=== PATIENT | male | born 1975 | race Caucasian/White ===

== ENCOUNTER → 2016-06-07 | Outpatient (CLI) | payer OTHER ==
[~2016-06-07] MED LIST: /ESOM40CA PO; /PANT40TA PO; ALBUTEROL INH; AMIT10TA2 PO; CYCL10TA PO; FLEXERIL PO; IBUP600T; IBUP600T PO; LIDO1OIN2 TOP; LIDO2.5C17 EXT; LIPI10TA PO; LISI2.5T PO; LOPR50TA; LOPR50TA PO; METO-209 PO; MOBI15TA PO; NAPR500T PO; NEUR800T PO; No Historical Meds; PERC5TAB8; PERCOCET PO; ROBA750T4 PO; SUMA5SPR; TOPA25TA10 PO; VICO5TAB PO
--- NOTE | 2016-06-13 23:47 | ECWPNPC ---
PATIENT NAME: EJ CORDERO : 1975 GENDER: MALE VISIT DATE: 06/07/2016 DISCHARGE DATE: 06/07/16 1256 VISIT LOCKED DATE TIME: PHYSICIAN: SHAKIRA COLES RESOURCE: SHAKIRA COLES REASON FOR APPOINTMENT 1. BACK/NECK HISTORY OF PRESENT ILLNESS HISTORY OF PRESENT ILLNESS: PAIN THE PATIENT DESCRIBES THE PAIN... FALL RISK SCREENING: SCREENING :NO FALLS IN THE PAST YEAR TODAY'S VISIT: NOTES: LAST VISIT 02/07/16. REQUESTED MRI OF LUMBAR SPINE AND WAS DENIED. STATES CALLED REPEATEDLY BUT NEVER GOT A CALL BACK. IS VERY FRUSTRATED BECAUSE OF THE ISSUE WITH THE MRI. ALSO REFERRED TO [facility] FOR EMG/NCS - THIS IS BEING SCHEDULED. RATES PAIN TODAY 12/08. STATES HE IS NOT DOING WELL WITH WEAN OF OPIATES AND THAT HE CAN NOT FUNCTION DUE TO PAIN. DESCRIBES PAIN CONSTANT WITH INTERMITTANT SHARP AND STABBING PAIN IN LOW AND MID BACK, WITH RADIATION TO RIGHT HIP AND LEG.. CURRENT MEDICATIONS TAKING PROTONIX 40 MG 1 TAB ORAL DAILY TAKING SUMATRIPTAN SUCCINATE - TABLET 1 TABLET NEEDED ONE TIME ORALLY BID PRN TAKING LISINOPRIL 10 MG TABLET 1 TABLET ORALLY ONCE A DAY TAKING MOBIC 15 MG TABLET 1 TABLET ORALLY ONCE A DAY TAKING PERCOCET 5-325 MG TABLET 1 -2 TABLETS ORALLY EVERY 4 HRS PRN PAIN MDD=5 TAKING VENTOLIN HFA 108 (90 BASE) MCG/ACT AEROSOL SOLUTION 2 PUFFS NEEDED INHALATION EVERY 4 HRS TAKING TOPIRAMATE 50 MG TABLET 1 TABLET ORALLY TWICE A DAY NOT-TAKING GEMFIBROZIL 600 MG TABLET 1 TABLET ORALLY TWICE A DAY NOT-TAKING ELAVIL 50 MG TABLET ORAL AT BEDTIME NEEDED NOT-TAKING MORPHINE SULFATE 30 MG TABLET 1 TABLET ORALLY AT BEDTIME MDD=1 NOT-TAKING NUCYNTA ER 100 MG TABLET EXTENDED RELEASE 12 HOUR 1 TABLET ORALLY EVERY 12 HRS MDD=1 TAKE AT HS NOT-TAKING OXYMORPHONE HCL ER 10 MG TABLET EXTENDED RELEASE 12 HOUR DIRECTED ORALLY TAKE 1 PO Q BEDTIME MDD=1 NOT-TAKING LIDOCAINE 5 % OINTMENT 1 APPLICATION TO AFFECTED AREA NEEDED EXTERNALLY THREE TIMES A DAY NEEDED NOT-TAKING CYCLOBENZAPRINE HCL 10 MG TABLET 1 TABLET ORALLY TID PRN NOT-TAKING METOPROLOL SUCCINATE ER 100 MG TABLET EXTENDED RELEASE 24 HOUR 1 TABLET ORALLY ONCE A DAY NOT-TAKING SUMATRIPTAN 5 MG/ACT SOLUTION NASALLY NEEDED MEDICATION LIST REVIEWED AND RECONCILED WITH THE PATIENT PAST MEDICAL HISTORY ASTHMA TMJ ALLERGIES N.K.D.A. SOCIAL HISTORY GENERAL: TOBACCO USE ARE YOU A:CURRENT SMOKER LEARNING BARRIERS / SPECIAL NEEDS ORIENTED TO PLAN OF CARE: PATIENT, PAIN MANAGEMENT PATIENT, ORIENTED TO PLAN OF CARE: PATIENT, PAIN MANAGEMENT PATIENT. NEW PATIENT PAIN DIARY TODAY'S VISITNOTES FROM 0-10, WHAT LEVEL IS YOUR PAIN TODAY?0 PAIN CLINIC PFS, CLERGY, PUBLIC HEALTH REFERRALS PFS REFERRAL NEEDED?NO CLERGY REFERRAL NEEDED?NO PUBLIC HEALTH REFERRAL NEEDED?NO WAS THE PROVIDER NOTIFIED OF ANY PERTINENT INFO?NO PFS REFERRAL NEEDED?NO CLERGY REFERRAL NEEDED?NO PUBLIC HEALTH REFERRAL NEEDED?NO WAS THE PROVIDER NOTIFIED OF ANY PERTINENT INFO?NO REVIEW OF SYSTEMS CONSTITUTIONAL: ANY CHANGE IN YOUR MEDICAL CONDITION? YES . CHILLS NO . FEVER NO . INFECTION: DO YOU HAVE NEW INFECTIONS? NO . DO YOU HAVE HISTORY OF MRSA? NO . MUSCULOSKELETAL: ANY NEW PATTERNS OF PAIN OR NUMBNESS? YES . GASTROENTEROLOGY: ANY NEW CHANGE IN BOWEL CONTROL? NO . GENITOURINARY: ANY NEW CHANGE IN BLADDER CONTROL? NO . IS THERE A CHANCE YOU COULD BE ? NO . HEMATOLOGY/LYMPH: DO YOU TAKE ANY BLOOD THINNERS? (FOR EXAMPLE- COUMADIN, PLAVIX, AGGRENOX, PLATEL, PRADAXA, OR XARELTO) NO . WHEN WAS YOUR LAST DOSE? DATE: TIME: . NEUROLOGY: HAVE YOU FALLEN IN THE PAST 6 MONTHS? YES . ANY NEW EXTREMITY NUMBNESS OR WEAKNESS? NO . CARDIOLOGY: DO YOU HAVE A PACEMAKER OR DEFIBRILLATOR? NO . HIGH BLOOD PRESSURE HAS RETURNED TO THE CARE OF DR MAYANK CHU FOR HYPERTENTION CARE . RESPIRATORY: HAVE YOU BEEN SICK IN THE PAST WEEK? YES,COLD . FEVER NO . FLU LIKE SYMPTOMS? NO . COUGH NO . INTEGUMENTARY: DO YOU HAVE ANY RASHES OR OPEN SORES? YES . ALLERGIC/IMMUNO: ARE YOU ALLERGIC TO SHELLFISH OR IV DYE? NO . ANY NEW ALLERGIES? NO . PSYCHIATRIC: DO YOU HAVE THOUGHTS OF HURTING YOURSELF OR SOMEONE ELSE? NO . ARE YOU ABUSED, NEGLECTED, OR IN AN UNSAFE ENVIRONMENT? NO . ENDOCRINOLOGY: ARE YOU DIABETIC? NO . OTHER: DO YOU NEED ANY PRESCRIPTIONS? NO . IF YES, PLEASE LIST: ____ . ANY NEW PROBLEMS WITH YOUR MEDICATIONS? NO . WHEN DID YOU LAST EAT? ____ . WHEN DID YOU LAST DRINK? ____ . WHAT DID YOU LAST DRINK? ____ . NAME OF PERSON DRIVING YOU HOME? ____ . DO YOU HAVE ANY OTHER QUESTIONS OR CONCERNS YES, &QUOT;I'LL DISCUSS WITH &QUOT;&NBSP;. REVIEWED BY: PROVIDER: SHAKIRA COLES RETAIL BUSINESS DEVELOPMENT MANAGER . VITAL SIGNS WT 211 LBS, HT 71", BMI 29.43 INDEX, BP 169/101 MM HG, REPEAT BP 150/92 MANUAL, HR 81 /MIN, RR 16 /MIN, TEMP 96.0 F, OXYGEN SAT % 100, NA INITIALS TL 1153, REVIEWED BY: CAMI ALLAN, SHIRA Cueva AWARERECHECKED BP @ 1207, 150/92, TL. EXAMINATION GENERAL EXAMINATION: PSYCHALERT , APPROPRIATE MOOD AND AFFECT , ORIENTED X 3 . LUNGS:CLEAR TO AUSCULTATION BILATERALLY. HEART:HEART RATE REGULAR. MUSCULOSKELETAL:MUSCLE STRENGTH TESTING 5/5 BILATERAL UPPER/LOWER EXTREMITY. POINT TENDERNESS OVER CERVICAL SPINOUS PROCESSES AND ACROSS LOW BACK. , TRIGGER POINTS AND TIGHT FIBROUS BANDS ACROSS THE LUMBAR PARAVERTEBRAL MUSCLES. SLOW TO RISE TO STANDING POSITION. POSTURE IS STIFF. GAIT ANTAGLIC.. 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 REVIEWED PREVIOUS MRI - PATIENT HAS HAD PREVIOUS LUMBAR LAMINECTOMY, NOW WITH INCREASING RADICULAR PAIN. HE HAS BEEN ON A SUPERIVED TRIAL OF NSAIDS BUT THESE ARE CONTRINDICATED DUE TO HIS ISSUES WITH HYPERTENSION. HE HAS BEEN ON MORE THAN 6 WEEKS OF THERAPY WITH DIFFERENT MUSCLE RELAXERS INCLUDING CYCLOBENZAPRINE, METHOCARBOMAL AND SOMA. HE HAS BEEN ON MULTIPLE NONOPIOID PAIN MEDS SUCH GABAPENTIN AND AMITRIPTYLINE WITH SIDEEFFECTS OF OVERSEDATION AND LACK OF CLINICAL IMPROVEMENT. HE CURRENT OPIOID MEDS ARE NOT PROVIDING HIM WITH RELIEF AND OUT GOAL IS TO REDUCE THEM. WE ARE RESPECTFULLY REQUESTING AUTH FOR MRI OF LUMBAR SPINE WITH AND WITHOUT CONTRAST SO WE CAN MAKE AN APPRORIATE PLAN FOR THIS PATIENT. HIS SURGEON WILL NOT SEE HIM EWITHOUT THE MRI.. CALL TO REPORT TELEPHONE ISSUES TO INSIDE SALES COORDINATOR MARKO - [phone]. CLINICAL NOTES: ISTOP REGISTRY REVIEWED AND DEMNOSTRATES COMPLLIANCE. BRINGS IN MEDICATIONS WHICH IS APPROPRIATE FOR WHAT WAS DISPENSED. RECENT URINE TOXICOLOGY REVIEWED. NO UNAUTHORIZED MEDICATIONS. NO ILLICIT SUBSTANCES AND PRESCRIBED MEDICATIONS WERE PRESENT. PROCEDURE CODES FA211 ESTABILISHED PATIENT [facility] CHARGE DISPOSITION & COMMUNICATION FOLLOW UP 1 MONTH ELECTRONICALLY SIGNED BY JULIETTE BOB ON 06/13/2016 AT 09:15 AM EDT DISCLAIMER : THIS IS A VISIT SUMMARY EXTRACTED FROM THE [employer] CHART. IT IS NOT A COPY OF THE [employer] PROGRESS NOTE. NAHED
== END ==
LOC: M PAIN 11:20
PROVIDERS: ATTEND Nurse Practitioner Family
DX: Z09 Encounter for follow-up examination after completed treatment for conditions other than malignant neoplasm (principal); G89.29 Other chronic pain; M96.1 Postlaminectomy syndrome, not elsewhere classified; M46.96 Unspecified inflammatory spondylopathy, lumbar region; G56.03 Carpal tunnel syndrome, bilateral upper limbs; J45.909 Unspecified asthma, uncomplicated; F17.200 Nicotine dependence, unspecified, uncomplicated; Z79.1 Long term (current) use of non-steroidal anti-inflammatories (NSAID); Z79.891 Long term (current) use of opiate analgesic; Z79.899 Other long term (current) drug therapy

== ENCOUNTER → 2016-07-01 | Outpatient (CLI) | payer OTHER ==
--- NOTE | 2016-07-13 00:23 | ECWPNPC ---
PATIENT NAME: EJ CORDERO : 1975 GENDER: MALE VISIT DATE: 07/01/2016 DISCHARGE DATE: 07/01/16 1456 VISIT LOCKED DATE TIME: PHYSICIAN: SHAKIRA COLES RESOURCE: SHAKIRA COLES REASON FOR APPOINTMENT 1. BACK HISTORY OF PRESENT ILLNESS HISTORY OF PRESENT ILLNESS: PAIN THE PATIENT DESCRIBES THE PAIN... FALL RISK SCREENING: SCREENING :NO FALLS IN THE PAST YEAR TODAY'S VISIT: NOTES: RATES PAIN TODAY 10/07. DESCRIBES PAIN CONSTANT, ACHING AND BURNING, TENDER, THROBBING AND SHOOTING. HAS INTERMITTANT SHARP AND STABBING PAIN, SHOOTING. MRI IS SCHEDULED FOR 07/23/16. STATES JUST CAN NOT FUNCTION WITH HIS CURRENT PAIN AND THAT HE NEEDS SOMETHING FOR NIGHTTIME PAIN.. CURRENT MEDICATIONS TAKING PROTONIX 40 MG 1 TAB ORAL DAILY TAKING SUMATRIPTAN SUCCINATE - TABLET 1 TABLET NEEDED ONE TIME ORALLY BID PRN TAKING LISINOPRIL 10 MG TABLET 1 TABLET ORALLY ONCE A DAY TAKING MOBIC 15 MG TABLET 1 TABLET ORALLY ONCE A DAY TAKING VENTOLIN HFA 108 (90 BASE) MCG/ACT AEROSOL SOLUTION 2 PUFFS NEEDED INHALATION EVERY 4 HRS TAKING TOPIRAMATE 50 MG TABLET 1 TABLET ORALLY TWICE A DAY TAKING PERCOCET 5-325 MG TABLET 1 -2 TABLETS ORALLY EVERY 4 HRS PRN PAIN MDD=5 TAKING TYLENOL 325 MG TABLET 2 TABLETS NEEDED ORALLY EVERY 6 HRS TAKING NYQUIL NOT-TAKING MORPHINE SULFATE 30 MG TABLET 1 TABLET ORALLY AT BEDTIME MDD=1 NOT-TAKING GEMFIBROZIL 600 MG TABLET 1 TABLET ORALLY TWICE A DAY NOT-TAKING ELAVIL 50 MG TABLET ORAL AT BEDTIME NEEDED NOT-TAKING NUCYNTA ER 100 MG TABLET EXTENDED RELEASE 12 HOUR 1 TABLET ORALLY EVERY 12 HRS MDD=1 TAKE AT HS NOT-TAKING OXYMORPHONE HCL ER 10 MG TABLET EXTENDED RELEASE 12 HOUR DIRECTED ORALLY TAKE 1 PO Q BEDTIME MDD=1 NOT-TAKING LIDOCAINE 5 % OINTMENT 1 APPLICATION TO AFFECTED AREA NEEDED EXTERNALLY THREE TIMES A DAY NEEDED NOT-TAKING CYCLOBENZAPRINE HCL 10 MG TABLET 1 TABLET ORALLY TID PRN NOT-TAKING METOPROLOL SUCCINATE ER 100 MG TABLET EXTENDED RELEASE 24 HOUR 1 TABLET ORALLY ONCE A DAY NOT-TAKING SUMATRIPTAN 5 MG/ACT SOLUTION NASALLY NEEDED MEDICATION LIST REVIEWED AND RECONCILED WITH THE PATIENT PAST MEDICAL HISTORY ASTHMA TMJ ALLERGIES N.K.D.A. SOCIAL HISTORY GENERAL: PAIN CLINIC PFS, CLERGY, PUBLIC HEALTH REFERRALS CLERGY REFERRAL NEEDED?NO WAS THE PROVIDER NOTIFIED OF ANY PERTINENT INFO?NO PFS REFERRAL NEEDED?NO PUBLIC HEALTH REFERRAL NEEDED?NO PATIENT: ____. REVIEW OF SYSTEMS CONSTITUTIONAL: ANY CHANGE IN YOUR MEDICAL CONDITION? NO . CHILLS NO . FEVER NO . INFECTION: DO YOU HAVE NEW INFECTIONS? NO . DO YOU HAVE HISTORY OF MRSA? NO . MUSCULOSKELETAL: ANY NEW PATTERNS OF PAIN OR NUMBNESS? NO . GASTROENTEROLOGY: ANY NEW CHANGE IN BOWEL CONTROL? NO . GENITOURINARY: ANY NEW CHANGE IN BLADDER CONTROL? NO . IS THERE A CHANCE YOU COULD BE ? NO . HEMATOLOGY/LYMPH: DO YOU TAKE ANY BLOOD THINNERS? (FOR EXAMPLE- COUMADIN, PLAVIX, AGGRENOX, PLATEL, PRADAXA, OR XARELTO) NO . WHEN WAS YOUR LAST DOSE? DATE: TIME: . NEUROLOGY: HAVE YOU FALLEN IN THE PAST 6 MONTHS? YES PT REPORTS HIS LEG GIVES OUT SOMETIMES, DENIES INJURIES FROM FALLS. . ANY NEW EXTREMITY NUMBNESS OR WEAKNESS? NO . CARDIOLOGY: DO YOU HAVE A PACEMAKER OR DEFIBRILLATOR? NO . RESPIRATORY: HAVE YOU BEEN SICK IN THE PAST WEEK? NO . FEVER NO . FLU LIKE SYMPTOMS? NO . COUGH NO . INTEGUMENTARY: DO YOU HAVE ANY RASHES OR OPEN SORES? YES ECZEMA ON FINGER . ALLERGIC/IMMUNO: ARE YOU ALLERGIC TO SHELLFISH OR IV DYE? NO . ANY NEW ALLERGIES? NO . PSYCHIATRIC: DO YOU HAVE THOUGHTS OF HURTING YOURSELF OR SOMEONE ELSE? NO . ARE YOU ABUSED, NEGLECTED, OR IN AN UNSAFE ENVIRONMENT? NO . ENDOCRINOLOGY: ARE YOU DIABETIC? NO . OTHER: DO YOU NEED ANY PRESCRIPTIONS? NO . IF YES, PLEASE LIST: ____ . ANY NEW PROBLEMS WITH YOUR MEDICATIONS? NO . WHEN DID YOU LAST EAT? ____ . WHEN DID YOU LAST DRINK? ____ . WHAT DID YOU LAST DRINK? ____ . NAME OF PERSON DRIVING YOU HOME? ____ . DO YOU HAVE ANY OTHER QUESTIONS OR CONCERNS YES PT WAS UNABLE TO GET MORPHINE, REQUIRED PRE AUTHORIZATION. HAVING A LOT TROUBLE SLEEPING, WOULD LIKE SOMETHING FOR NIGHT TIME PAIN. . HEENT: PATIENT COMPLAINING OF ABCESSED TOOTH WHICH IS BREAKING. . REVIEWED BY: PROVIDER: SHAKIRA WALKER METALIZING SUPERVISOR . VITAL SIGNS WT 200.0 LBS, HT 71", BMI 27.89 INDEX, BP 155/91 MM HG, HR 83 /MIN, RR 16 /MIN, TEMP 98.1 F, OXYGEN SAT % 100%, SAFE IN ENV? (Y/N) YES, NA INITIALS TL 1407, REVIEWED BY: HERMILO. EXAMINATION GENERAL EXAMINATION: PSYCHALERT , APPROPRIATE MOOD AND AFFECT , ORIENTED X 3 . LUNGS:CLEAR TO AUSCULTATION BILATERALLY. HEART:HEART RATE REGULAR. MUSCULOSKELETAL:MUSCLE STRENGTH TESTING 5/5 BILATERAL UPPER/LOWER EXTREMITY. POINT TENDERNESS OVER CERVICAL SPINOUS PROCESSES AND ACROSS LOW BACK. , TRIGGER POINTS AND TIGHT FIBROUS BANDS ACROSS THE LUMBAR PARAVERTEBRAL MUSCLES. SLOW TO RISE TO STANDING POSITION. POSTURE IS STIFF. GAIT ANTAGLIC.. ASSESSMENTS LUMBAR POST-LAMINECTOMY SYNDROME - M96.1 (PRIMARY) LUMBAR FACET ARTHROPATHY - M46.96 CHRONIC PRESCRIPTION OPIATE USE - Z79.899 BILATERAL CARPAL TUNNEL SYNDROME - G56.03 TREATMENT LUMBAR POST-LAMINECTOMY SYNDROME START SOMA TABLET, 350 MG, 1 TABLET, ORALLY, TAKE ONE AT BEDTIME AND MAY REPEAT TIMES ONE IN THE NIGHT MDD=2, 30 DAY(S), 60, REFILLS 1 START LIDOCAINE VISCOUS SOLUTION, 2 %, DIRECTED, MOUTH/THROAT, APPLY TO PAINLY TOOTH/ORAL LESION Q 4 HRS PRN, 30 DAY(S), 100 MILLILITER, REFILLS 0 NOTES: UTOX TODAY. OK TO INCREASE OXYCODONE TO MAX 6 PER DAY.NEED TO FIND DENTIST TO TAKE CARE OF TOOTH. CLINICAL NOTES: ISTOP REGISTRY REVIEWED AND DEMNOSTRATES COMPLLIANCE. BRINGS IN MEDICATIONS WHICH IS APPROPRIATE FOR WHAT WAS DISPENSED. RECENT URINE TOXICOLOGY REVIEWED. NO UNAUTHORIZED MEDICATIONS. NO ILLICIT SUBSTANCES AND PRESCRIBED MEDICATIONS WERE PRESENT. DISPOSITION & COMMUNICATION FOLLOW UP 1 MONTH ELECTRONICALLY SIGNED BY JULIETTE BOB ON 07/12/2016 AT 10:10 AM EDT DISCLAIMER : THIS IS A VISIT SUMMARY EXTRACTED FROM THE [employer] CHART. IT IS NOT A COPY OF THE [employer] PROGRESS NOTE. MTDLianet
== END ==
LOC: M PAIN 14:00
PROVIDERS: ATTEND Nurse Practitioner Family
DX: Z09 Encounter for follow-up examination after completed treatment for conditions other than malignant neoplasm (principal); M96.1 Postlaminectomy syndrome, not elsewhere classified; M46.96 Unspecified inflammatory spondylopathy, lumbar region; G56.03 Carpal tunnel syndrome, bilateral upper limbs; J45.909 Unspecified asthma, uncomplicated; Z79.01 Long term (current) use of anticoagulants; Z79.891 Long term (current) use of opiate analgesic; Z79.899 Other long term (current) drug therapy

== ENCOUNTER 2016-12-16 14:31 | Emergency (ER) | payer OTHER ==
[~2016-12-16] VITALS: Ht 180.3 cm; Wt 84.1 kg
[2016-12-16 14:31] VITALS: BP 141/71
[~2016-12-16 14:31] MED LIST changes: -METO-209 PO; +METO1TAB33 PO; +TOPA1TAB PO; -TOPA25TA10 PO
[2016-12-16] MEDS ORDERED: LISI10TA4 PO (14:56)
[2016-12-16] MEDS ORDERED: ALBU17IN INH (14:56)
--- NOTE | 2016-12-16 15:44 | REP ---
Right foot four views: There is no fracture or dislocation. There is internal fixation of the tibia. There are no foreign bodies or calcifications. There is a tiny calcaneal spur. 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 Signed by Moises Cross MD 12/16/2016 03:35 P
[2016-12-16] MEDS ORDERED: NORCOTAB PO (18:39)
[2016-12-16] MEDS ORDERED: NORCO, ANEXSIA 5/325MG TABLET (HYDROcodone/ACETAMINOPHEN) PO ONE (18:45)
== END 2016-12-16 19:06 | disposition home or self-care (01) ==
LOC: M ED 14:31
DX: S90.31XA Contusion of right foot, initial encounter (principal); W28.XXXA Contact with powered lawn mower, initial encounter; Y92.099 Unspecified place in other non-institutional residence as the place of occurrence of the external cause; Y93.89 Activity, other specified; Y99.9 Unspecified external cause status

== ENCOUNTER 2017-02-05 18:04 | Inpatient (IN) | payer OTHER ==
[~2017-02-05] VITALS: Ht 180.3 cm; Wt 90.6 kg
[~2017-02-05 18:04] MED LIST changes: +ALBU17IN INH; +LISI10TA4 PO; +NORCOTAB PO
[2017-02-05] MEDS ORDERED: NICOTINE 21MG/24HR 1 EA TRANSDERMAL TD ONE (19:30)
[2017-02-05] MEDS ORDERED: ONDANSETRON 4MG/2ML VIAL (J2405) IV ONE (19:30)
[2017-02-05] MEDS ORDERED: NS 1,000 ML IV ONE ×2 (19:30→23:45)
[2017-02-05 19:37] LABS: BASO % 0.2 % (0.0-1.0); EOS # 0.1 10^3/uL (0.0-0.50); EOS % 0.6 % (0.0-3.0); IMMATURE GRANULOCYTE % 0.9 % (0-0); LYMPH % 24.3 % (24.0-44.0); MEAN CORPUSCULAR HEMOGLOBIN 33.2 pg (27.0-33.0); MEAN CORPUSCULAR HGB CONC 35.5 g/dl (32.0-36.5); MEAN CORPUSCULAR VOLUME 93.5 fl (80.0-96.0); MONO # 0.7 10^3/uL (0.0-0.8); MONO % 5.7 % (0.0-5.0); NEUTROPHILS # 8.5 10^3/uL (1.8-7.7); NEUTROPHILS % 68.3 % (36.0-66.0); PLATELET COUNT, AUTOMATED 229 10^3/uL (150-450); WHITE BLOOD COUNT 12.4 10^3/uL (4.0-10.0)
[2017-02-05 19:40] LABS: INR 1.08
[2017-02-05 19:46] LABS: ALBUMIN 3.5 GM/DL (3.2-5.2); ALBUMIN/GLOBULIN RATIO 1.35 (1.00-1.93); ALKALINE PHOSPHATASE 50 U/L (45-117); ALT/SGPT 26 U/L (12-78); ANION GAP 9 MEQ/L (8-16); AST/SGOT 14 U/L (7-37); BILIRUBIN,DIRECT 0.1 MG/DL (0.0-0.2); BILIRUBIN,TOTAL 0.2 MG/DL (0.2-1.0); BLOOD UREA NITROGEN 14 MG/DL (7-18); CALCIUM LEVEL 8.3 MG/DL (8.5-10.1); CARBON DIOXIDE LEVEL 19 MEQ/L (21-32); CHLORIDE LEVEL 113 MEQ/L (98-107); CREATININE FOR GFR 0.82 MG/DL (0.70-1.30); GLOMERULAR FILTRATION RATE > 60.0 (>60); GLUCOSE, FASTING 91 MG/DL (70-105); POTASSIUM SERUM 3.9 MEQ/L (3.5-5.1); SODIUM LEVEL 141 MEQ/L (136-145); TOTAL PROTEIN 6.1 GM/DL (6.4-8.2)
[2017-02-05] MEDS ORDERED: ISOVUE-370 76% 100ML VIAL (Q9967) As Ordered ONE (20:31)
[2017-02-05] MEDS: MORPHINE 4 MG/ML 1ML SYRINGE IV PRN (20:39)
--- NOTE | 2017-02-05 21:50 | REPUSA ---
CLINICAL HISTORY: Abdominal pain, rectal bleeding. TECHNIQUE: CT abdomen and pelvis following administration of IV contrast. Total DLP 531 mGy*cm COMPARISON: April 21, 2009. CT ABDOMEN WITH CONTRAST: Lung bases: No lung base infiltrate or effusion. Liver: No intrahepatic ductal dilation. Gallbladder: Normally distended. Pancreas: No pancreatic duct dilation. Bowel loops: Nondistended. Spleen: Normal size. Adrenals: Normal size. Kidneys: No hydronephrosis. Aorta: Normal caliber. Peritoneum: No free air. CT PELVIS WITH CONTRAST: Colon: Nondistended. Appendix: Normal appendix is seen. Bladder: Normally distended. Pelvic organs: Unremarkable. Peritoneum: No fluid. Skeleton: No acute findings. IMPRESSION: No acute abdominal findings.
[2017-02-05] MEDS ORDERED: SUCRALFATE 1 GM TAB PO SCH (22:00)
[2017-02-05] MEDS ORDERED: HYDROmorphone HCL 1 MG/ML SYRINGE (J1170) IV ONE (22:45)
[2017-02-05] MEDS ORDERED: CLOT1CRE71 TOP (22:55)
[2017-02-05] MEDS ORDERED: TOPI50TA9 PO (22:55)
[2017-02-05] MEDS ORDERED: PERC5TAB12 PO (22:55)
[2017-02-05] MEDS ORDERED: LISI10TA4 PO (22:55)
[2017-02-05] MEDS ORDERED: PROT1TAB2 PO (22:55)
[2017-02-05] MEDS ORDERED: VENTAER INH (22:55)
[2017-02-05] MEDS: NS 1,000 ML IV SCH (23:02)
[2017-02-05] MEDS ORDERED: ONDANSETRON 4MG/2ML VIAL (J2405) IV PRN (23:15)
[2017-02-05] MEDS ORDERED: ACETAMINOPHEN TAB 650MG DOSE (2X325MG) PO PRN (23:15)
[2017-02-06] VITALS (9 sets, daily range): BP systolic 107–134; BP diastolic 55–76
[2017-02-06] MEDS: PANTOPRAZOLE 40MG INJ (PROTONIX) (C9113) IV SCH ×3 (02:24→21:18)
[2017-02-06] MEDS: TOPIRAMATE (TopAMAX) 25 MG TAB PO SCH ×3 (02:25→21:18)
[2017-02-06] MEDS: MORPHINE 4 MG/ML 1ML SYRINGE IV PRN (02:26)
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
[2017-02-06 06:09] LABS: MEAN CORPUSCULAR HEMOGLOBIN 32.6 pg (27.0-33.0); MEAN CORPUSCULAR HGB CONC 34.8 g/dl (32.0-36.5); MEAN CORPUSCULAR VOLUME 93.8 fl (80.0-96.0); PLATELET COUNT, AUTOMATED 210 10^3/uL (150-450); RED CELL DISTRIBUTION WIDTH 13.1 % (11.5-14.5); WHITE BLOOD COUNT 9.4 10^3/uL (4.0-10.0)
[2017-02-06 06:27] LABS: ANION GAP 8 MEQ/L (8-16); BLOOD UREA NITROGEN 14 MG/DL (7-18); CALCIUM LEVEL 7.9 MG/DL (8.5-10.1); CARBON DIOXIDE LEVEL 21 MEQ/L (21-32); CHLORIDE LEVEL 111 MEQ/L (98-107); CREATININE FOR GFR 0.77 MG/DL (0.70-1.30); GLOMERULAR FILTRATION RATE > 60.0 (>60); GLUCOSE, FASTING 115 MG/DL (70-105); POTASSIUM SERUM 3.7 MEQ/L (3.5-5.1); SODIUM LEVEL 140 MEQ/L (136-145)
[2017-02-06] MEDS: ALBUTEROL SULFATE 2.5 MG/0.5 ML INH NEB SOLN NEB SCH ×4 (07:01→20:36)
[2017-02-06] MEDS: NS 1,000 ML IV SCH (08:10)
[2017-02-06] MEDS: LOTRISONE CREAM 15 GM (BETAMETH/CLOTRIMAZOLE) TOP SCH ×2 (09:04→21:00)
[2017-02-06] MEDS: NORCO, ANEXSIA 5/325MG TABLET (HYDROcodone/ACETAMINOPHEN) PO PRN ×3 (09:05→23:33)
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
[2017-02-06] MEDS ORDERED: GOLYTELY SOLN 4000 ML BTL PO ONE (17:15)
[2017-02-06] MEDS: SUCRALFATE 1 GM TAB PO SCH ×2 (17:55→23:34)
[2017-02-06] MEDS: LR 1,000 ML IV SCH (17:56)
--- NOTE | 2017-02-06 18:01 | IPNPDOC ---
Text Note Date of Service The patient was seen on 02/06/17. NOTE No acute events overnight. initially reported BRBPR resolved with melana followed by brown stool, does not want inpatient scope, but after diet advanced to clear, BRBPR returned. denied light headedness, cp, f/c/sob, reported mild epigastric discomfort gen NAD aaox3 HEENT nt nd neck supple pul f/u clear car RRR nl s1s2 abd soft min tender epigastric no rebound no guarding + bs ext no edema 41-year-old male with past medical history significant for migraines, back pain , asthma, peptic ulcer, hypertension presents emergency room with bright red blood per rectum Bright Blood per rectum, abdominal pain May be secondary to upper GI bleed. 2/2 NSAID coag, serial HH IVF orthostatic transfuse as needed Surgey Dr Del Rio consulted NPO bowel prep for egd colon ppi carafate acute blood loss anemia 2/2 to GI bleed see above History of peptic ulcers, GERD ppi Back pain Patient has chronic back pain. Monitor.pain med as ordered, Pain management consult Hypertension Monitor vitals. hold bp meds Asthma Continue home meds. Arthritis Monitor. Migraines Continue home medications. h/o drug abuse avoid narcotics as much as possible, Istop apreciated dvt ppx teds scd, avoid AC given GI bleed dispo scopes VS,Fishbone, I+O VS, Fishbone, I+O Laboratory Tests 02/05/17 18:46 Red Blood Count 3.83 L, Mean Corpuscular Volume 93.5, Mean Corpuscular Hemoglobin 33.2 H, Mean Corpuscular Hemoglobin Concent 35.5, Red Cell Distribution Width 13.0, Neutrophils (%) (Auto) 68.3 H, Lymphocytes (%) (Auto) 24.3, Monocytes (%) (Auto) 5.7 H, Eosinophils (%) (Auto) 0.6, Basophils (%) ( Auto) 0.2, Neutrophils # (Auto) 8.5 H, Lymphocytes # (Auto) 3.0, Monocytes # ( Auto) 0.7, Eosinophils # (Auto) 0.1, Basophils # (Auto) 0.0 02/06/17 01:28 02/06/17 05:23 Red Blood Count 3.37 L, Mean Corpuscular Volume 93.8, Mean Corpuscular Hemoglobin 32.6, Mean Corpuscular Hemoglobin Concent 34.8, Red Cell Distribution Width 13.1, Calcium Level 7.9 L 02/06/17 12:08 Vital Signs Date Time Temp Pulse Resp B/P (MAP) Pulse Ox O2 Delivery O2 Flow Rate FiO2 02/06/17 16:48 16 02/06/17 16:00 98.3 99 Room Air 02/06/17 15:05 90 117/64 (81) 104 123/66 (85) I&O- Last 24 Hours up to 6 AM 02/07/17 06:00 Intake Total 960 ml Balance 960 ml TAMIKO LINDSEY MD Feb 06, 2017 18:01
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
[2017-02-07] VITALS (7 sets, daily range): BP systolic 106–141; BP diastolic 58–87
[2017-02-07] MEDS: LR 1,000 ML IV SCH ×3 (01:18→14:16)
[2017-02-07 05:19] LABS: MEAN CORPUSCULAR HGB CONC 33.9 g/dl (32.0-36.5); MEAN CORPUSCULAR VOLUME 97.1 fl (80.0-96.0); PLATELET COUNT, AUTOMATED 187 10^3/uL (150-450); RED CELL DISTRIBUTION WIDTH 13.2 % (11.5-14.5); WHITE BLOOD COUNT 9.3 10^3/uL (4.0-10.0)
[2017-02-07 05:37] LABS: ANION GAP 7 MEQ/L (8-16); BLOOD UREA NITROGEN 9 MG/DL (7-18); CALCIUM LEVEL 7.6 MG/DL (8.5-10.1); CARBON DIOXIDE LEVEL 22 MEQ/L (21-32); CHLORIDE LEVEL 115 MEQ/L (98-107); CREATININE FOR GFR 0.74 MG/DL (0.70-1.30); GLOMERULAR FILTRATION RATE > 60.0 (>60); GLUCOSE, FASTING 101 MG/DL (70-105); MAGNESIUM LEVEL 1.8 MG/DL (1.8-2.4); POTASSIUM SERUM 3.7 MEQ/L (3.5-5.1); SODIUM LEVEL 144 MEQ/L (136-145)
[2017-02-07] MEDS: SUCRALFATE 1 GM TAB PO SCH ×3 (06:00→20:44)
[2017-02-07] MEDS: ALBUTEROL SULFATE 2.5 MG/0.5 ML INH NEB SOLN NEB SCH ×4 (07:40→20:00)
[2017-02-07] MEDS: TOPIRAMATE (TopAMAX) 25 MG TAB PO SCH ×2 (09:35→20:43)
[2017-02-07] MEDS: PANTOPRAZOLE 40MG INJ (PROTONIX) (C9113) IV SCH ×2 (09:35→20:43)
[2017-02-07] MEDS: LOTRISONE CREAM 15 GM (BETAMETH/CLOTRIMAZOLE) TOP SCH ×2 (09:36→20:44)
[2017-02-07] MEDS: NORCO, ANEXSIA 5/325MG TABLET (HYDROcodone/ACETAMINOPHEN) PO PRN ×2 (09:37→20:44)
--- NOTE | 2017-02-07 12:55 | IPNPDOC ---
Date Seen The patient was seen on 02/07/17. Progress Note SUBJECTIVE: Patient is a 41 year old male with a history of migraines, back pain , asthma, peptic ulcers, hypertension who was admitted for GI bleed. This morning at bedside, he was resting comfortable in no acute distress. He had multiple bowl movement yesterday which were bloody in nature. Denies any lightheadedness, dizziness or nausea or vomiting. He is currently NPO. OBJECTIVE PHYSICAL EXAMINATION: VITAL SIGNS: Please see below. General: Alert and oriented times three. No acute distress. Abdomen: Soft, nontender, nondistended. Bowel sounds in all four quadrants. Extremities: No clubbing, cyanosis or edema. LABORATORY DATA: Please see below. MICROBIOLOGY: Please see below. ASSESSMENT AND PLAN: Patient is a 41 year old male with a history of migraines, back pain, asthma, peptic ulcers, hypertension who was admitted for GI bleed. PROBLEMS: 1. Since admission hemoglobin has dropped from 12 to 9.3 and stayed stable. With this recent bloody stool yesterday we have informed the patient we would like to do an EGD and colonoscopy to see where the bleed is coming from. Patient has agreed and has consented to the procedure patient will be continue nothing by mouth until procedure later this evening. He is "to follow". VS, I&O, 24H, Fishbone Vital Signs/I&O Vital Signs Date Time Temp Pulse Resp B/P (MAP) Pulse Ox O2 Delivery O2 Flow Rate FiO2 02/07/17 10:15 16 02/07/17 08:00 97.9 93 113/65 (81) 98 Room Air I&O- Last 24 Hours up to 6 AM 02/08/17 06:00 Intake Total 975 ml Balance 975 ml Laboratory Data 24H LABS Laboratory Tests 2 02/07/17 05:02: Nucleated Red Blood Cells % (auto) 0.0, Anion Gap 7L, Glomerular Filtration Rate > 60.0, Blood Urea Nitrogen 9, Creatinine 0.74, Sodium Level 144, Potassium Level 3.7, Chloride Level 115H, Carbon Dioxide Level 22, Calcium Level 7.6L, Magnesium Level 1.8 CBC/BMP Laboratory Tests 02/06/17 20:10 02/07/17 05:02 Red Blood Count 2.79 L, Mean Corpuscular Volume 97.1 H, Mean Corpuscular Hemoglobin 33.0, Mean Corpuscular Hemoglobin Concent 33.9, Red Cell Distribution Width 13.2, Calcium Level 7.6 L GME ATTESTATION GME ATTESTATION My preceptor for this patient encounter was physically present in the building during the encounter and was fully available. As needed, all aspects of the patient interview, examination, medical decision making process, and medical care plan development were reviewed and approved by the preceptor. Preceptor is aware and concurs with the plan as stated in the body of this note and will attest to such by his/her cosignature. DIEGO GARCIA DO Feb 07, 2017 12:55
--- NOTE | 2017-02-07 15:43 | IPNPDOC ---
Text Note Date of Service The patient was seen on 02/07/17. NOTE con't to have BRBPR with bowel prep. denied light headedness, cp, f/c/sob, reported mild epigastric discomfort gen NAD aaox3 HEENT nt nd neck supple pul f/u clear car RRR nl s1s2 abd soft min tender epigastric no rebound no guarding + bs ext no edema 41-year-old male with past medical history significant for migraines, back pain , asthma, peptic ulcer, hypertension presents emergency room with bright red blood per rectum Bright Blood per rectum, abdominal pain May be secondary to upper GI bleed. 2/2 NSAID coag, serial HH IVF orthostatic transfuse as needed Surgey Dr Del Rio consulted NPO bowel prep for egd colon ppi carafate acute blood loss anemia 2/2 to GI bleed see above History of peptic ulcers, GERD ppi Back pain Patient has chronic back pain. Monitor.pain med as ordered, Pain management consult Hypertension Monitor vitals. hold bp meds Asthma Continue home meds. Arthritis Monitor. Migraines Continue home medications. h/o drug abuse avoid narcotics as much as possible, Istop apreciated dvt ppx teds scd, avoid AC given GI bleed dispo scopes VS,Fishbone, I+O VS, Fishbone, I+O Laboratory Tests 02/06/17 20:10 02/07/17 05:02 Red Blood Count 2.79 L, Mean Corpuscular Volume 97.1 H, Mean Corpuscular Hemoglobin 33.0, Mean Corpuscular Hemoglobin Concent 33.9, Red Cell Distribution Width 13.2, Calcium Level 7.6 L 02/07/17 12:59 Vital Signs Date Time Temp Pulse Resp B/P (MAP) Pulse Ox O2 Delivery O2 Flow Rate FiO2 02/07/17 12:00 97.3 95 18 117/77 (90) 98 Room Air I&O- Last 24 Hours up to 6 AM 02/08/17 06:00 Intake Total 975 ml Balance 975 ml TAMIKO LINDSEY MD Feb 07, 2017 15:43
[2017-02-07] MEDS ORDERED: MIDAZOLAM INJ 2 MG/2 ML VIAL (J2250) As Ordered ONE (17:28)
[2017-02-07] MEDS ORDERED: CETACAINE SPRAY 20GM (FLOOR STOCK) As Ordered ONE (17:32)
[2017-02-07] MEDS ORDERED: PROPOFOL 200 MG/20 ML VIAL As Ordered ONE (18:03)
[2017-02-07] MEDS ORDERED: LIDOCAINE 2% INJ 100 MG/5 ML SDV (FOR ANES.) As Ordered ONE (18:03)
[2017-02-07] MEDS ORDERED: ePHEDrine SULFATE 25 MG/5 ML(5MG/ML) SYRINGE As Ordered ONE (18:27)
[2017-02-07] MEDS ORDERED: LR 1,000 ML IV SCH (18:45)
[2017-02-07] MEDS ORDERED: ONDANSETRON 4MG/2ML VIAL (J2405) IV PRN (18:45)
[2017-02-08] MEDS: LR 1,000 ML IV SCH (02:53)
[2017-02-08] MEDS: NORCO, ANEXSIA 5/325MG TABLET (HYDROcodone/ACETAMINOPHEN) PO PRN ×2 (02:54→10:33)
[2017-02-08 04:45] VITALS: BP 111/57
[2017-02-08 05:38] LABS: MEAN CORPUSCULAR HEMOGLOBIN 33.1 pg (27.0-33.0); MEAN CORPUSCULAR HGB CONC 34.1 g/dl (32.0-36.5); MEAN CORPUSCULAR VOLUME 97.1 fl (80.0-96.0); PLATELET COUNT, AUTOMATED 190 10^3/uL (150-450); RED CELL DISTRIBUTION WIDTH 13.2 % (11.5-14.5)
[2017-02-08] MEDS: SUCRALFATE 1 GM TAB PO SCH ×3 (05:47→11:49)
[2017-02-08 06:12] LABS: ANION GAP 10 MEQ/L (8-16); BLOOD UREA NITROGEN 6 MG/DL (7-18); CALCIUM LEVEL 7.8 MG/DL (8.5-10.1); CARBON DIOXIDE LEVEL 21 MEQ/L (21-32); CHLORIDE LEVEL 117 MEQ/L (98-107); GLOMERULAR FILTRATION RATE > 60.0 (>60); GLUCOSE, FASTING 131 MG/DL (70-105); MAGNESIUM LEVEL 1.9 MG/DL (1.8-2.4); POTASSIUM SERUM 3.6 MEQ/L (3.5-5.1); SODIUM LEVEL 148 MEQ/L (136-145)
[2017-02-08] MEDS: ALBUTEROL SULFATE 2.5 MG/0.5 ML INH NEB SOLN NEB SCH ×3 (07:41→15:28)
[2017-02-08 08:00] VITALS: BP_SYST 113; BP_SYST 121; BP_SYST 124; BP_DIAS 65; BP_DIAS 66; BP_DIAS 72
[2017-02-08] MEDS: PANTOPRAZOLE 40MG INJ (PROTONIX) (C9113) IV SCH (10:32)
[2017-02-08] MEDS: LOTRISONE CREAM 15 GM (BETAMETH/CLOTRIMAZOLE) TOP SCH (10:32)
[2017-02-08] MEDS: TOPIRAMATE (TopAMAX) 25 MG TAB PO SCH (11:49)
[2017-02-08 12:00] VITALS: BP 141/68
[2017-02-08] MEDS ORDERED: PROT1TAB2 PO (12:00)
--- NOTE | 2017-02-09 01:57 | DSES ---
DATE OF ADMISSION: 02/05/2017 DATE OF DISCHARGE: 02/08/2017 PRIMARY CARE PROVIDER: Aden Belle. GENERAL SURGEON: Dr. Del Rio. PAIN MANAGEMENT: Snehal Hernandez. FINAL DIAGNOSES: 1. Bright red blood per rectum likely secondary to diverticular bleed. 2. Acute blood loss anemia. 3. History of peptic ulcer disease. 4. Gastroesophageal reflux disease (GERD). 5. History of chronic back pain. 6. Hypertension. 7. Asthma. 8. Arthritis. 9. Migraine headache. 10. History of drug abuse. HISTORY OF PRESENT ILLNESS: This is a 41-year-old male patient with underlying medical history of migraine headache, back pain, asthma, peptic ulcer disease, hypertension, presented to the emergency room with bright red blood per rectum. Patient states that it started on the day of admission. Went to his primary care doctor for an appointment in the morning, felt fine at that point and was helping his landlord move things around and drank a lot of coffee in the morning and thought maybe it was from the coffee or something he ate. He felt the urge to go to have a bowel movement, possibly diarrhea, found bright red blood per rectum on toilet paper, as well as in the water. Patient then went to the computer to do research. As soon as he started doing the search, he felt another episode to go to the bathroom again and again with bright red blood per rectum in the toilet. Reported never had this happen to him before. Presented to the hospital emergency room. Reported feeling funny and dizzy. [place] flustered. Subsequently patient was admitted to the hospital. HOSPITAL COURSE: Patient was initially monitored overnight, serial hemoglobin and hematocrit was followed. Orthostatic vital signs were followed. Intravenous (IV) fluids were given. Surgery has been consulted. Patient's diet has been advanced. Initially it was thought that patient's bleeding has stopped and patient elected to proceed with colonoscopy, esophagogastroduodenoscopy (EGD) as outpatient, but unfortunately bleeding recurred after diet was advanced. Subsequently, patient underwent EGD, colonoscopy, only finding diverticular. As per Dr. Del Rio, most likely patient suffering from diverticular bleed. No surgical intervention at this time. Recommend advance diet, monitor hemoglobin and hematocrit. Patient's hemoglobin and hematocrit eventually stabilized with bleeding that has stopped. Subsequently, patient's orthostatics negative. Tolerating oral, asymptomatic. Ready to discharge for further care as outpatient. Patient is advised to observe a high fiber diet, as well as avoid nonsteroidal antiinflammatory drugs (NSAIDs) and antiplatelet agents. PHYSICAL EXAMINATION: VITAL SIGNS: Temperature 97.3, pulse 107, respirations 18, blood pressure 113/65, pulse oximetry 97% on room air. GENERAL: Patient alert and oriented times three in no acute distress. HEENT: Normocephalic, atraumatic. PULMONARY: Bilaterally clear to auscultation. CARDIAC: Regular rate and rhythm. Normal S1, S2. ABDOMEN: Soft, nontender, positive bowel sounds. EXTREMITIES: No clubbing, cyanosis or edema. LABORATORY: WBC 11, hemoglobin and hematocrit 9.6/28.1, platelets 190. Chemistry: Sodium 148, potassium 3.6, chloride 117, bicarbonate 21, BUN 6, creatinine 0.8. DISCHARGE MEDICATIONS: - Protonix 40 mg by mouth daily - Ventolin inhaler as needed four times a day - lisinopril 10 mg by mouth daily - Percocet 5/325 mg by mouth three times a day as needed - topiramate 50 mg by mouth twice a day DISCHARGE INSTRUCTIONS: Patient is instructed to followup with primary care provider in 7 days. General surgery, Dr. Del Rio in 2 weeks. Return to the hospital if symptoms return. High fiber diet. Avoid NSAIDs, antiplatelets and alcoholic beverages.
--- NOTE | 2017-02-09 09:49 | RO ---
DATE OF PROCEDURE: 02/07/2017 PREOPERATIVE DIAGNOSIS: Melanotic stools. POSTOPERATIVE DIAGNOSIS: Likely diverticular bleed. PROCEDURE: Esophagogastroduodenoscopy (EGD) and colonoscopy. SURGEON: Moises Del Rio DO PROGRESSIVE CARE NURSE: None. ANESTHESIA: IV sedation. COMPLICATIONS: None. ESTIMATED BLOOD LOSS: None. INDICATION FOR PROCEDURE: Patient is a 41 old male who has been in the hospital with a gastrointestinal (GI) bleed with bright red blood per rectum as well as some melanotic stools. Recommendation was to proceed with EGD and colonoscopy to determine the cause of the bleed. Risks and benefits of the procedure not limited to, but include bleeding, infection, and perforation were discussed in detail with the patient and informed consent was obtained. The procedure was planned. PROCEDURE: Patient was brought back to operating room 8. After adequate sedation, he was placed in left lateral decubitus position. A bite block was placed. Next, upper endoscopy was started. Scope was passed through the oropharynx, down through the esophagus and into the stomach, near the second portion of duodenum. There is no signs of any ulcerations or bleeding, new or old. No signs of any gastritis, masses or any lesions of any kind. Pictures were taken. Scope was slowly withdrawn examining the stomach, the duodenum and the esophagus. No signs of any abnormalities. The scope was then removed. Next, a colonoscope was taken and passed through the rectum all way to level the cecum without any resistance. The scope was then slowly withdrawn. In the ascending colon there were a couple diverticulum, one of which was very hyperemic. No signs of any clotting or active bleeding, but that was likely the source of the blood. There were maybe 3-5 diverticuli in the ascending colon. The rest of the colon was normal. No other diverticuli in the left colon. No signs of any masses. There were some internal hemorrhoids, but they were mild and without any signs of inflammation or bleeding from them as well. The scope was then removed. The patient was awakened from anesthesia and sent to the postanesthesia care unit (PACU) in stable condition.
== END 2017-02-08 16:04 | disposition home or self-care (01) | DRG 253 ==
LOC: M ED 18:04 → M ED INP 23:02 → M PCU 02-06 01:49
PROVIDERS: ATTEND Hospitalist
PROC: 0DJD8ZZ Inspection of Lower Intestinal Tract, Via Natural or Artificial Opening Endoscopic (ICD-10-PCS; 2017-02-07)
PROC: 0DJ08ZZ Inspection of Upper Intestinal Tract, Via Natural or Artificial Opening Endoscopic (ICD-10-PCS; principal; 2017-02-07 18:15)
DX: K62.5 Hemorrhage of anus and rectum (principal); I10 Essential (primary) hypertension; M54.9 Dorsalgia, unspecified; F17.210 Nicotine dependence, cigarettes, uncomplicated; K21.9 Gastro-esophageal reflux disease without esophagitis; J45.909 Unspecified asthma, uncomplicated; Z88.8 Allergy status to other drugs, medicaments and biological substances; Z79.899 Other long term (current) drug therapy; K57.31 Diverticulosis of large intestine without perforation or abscess with bleeding; D62 Acute posthemorrhagic anemia

== ENCOUNTER 2017-08-14 20:53 | Emergency (ER) | payer OTHER ==
[2017-08-14] MEDS: ADACEL/BOOSTRIX VACCINE (DIPHTH/PERTUSS/ACELL/TETANUS)0.5ML SYR (90715) IM (22:28)
[2017-08-14] MEDS: CEPHALEXIN 500 MG CAP PO (23:13)
[2017-08-14] MEDS: OXYCODONE/APAP 5MG/325MG(BULK FOR ED) 1 TABLET PO (23:13)
== END 2017-08-14 23:50 | disposition home or self-care (01) ==
LOC: M ED 20:53
DX: S61.012A Laceration without foreign body of left thumb without damage to nail, initial encounter (principal); X58.XXXA Exposure to other specified factors, initial encounter; Y92.018 Other place in single-family (private) house as the place of occurrence of the external cause; I10 Essential (primary) hypertension; K21.9 Gastro-esophageal reflux disease without esophagitis; G89.29 Other chronic pain; F10.10 Alcohol abuse, uncomplicated; Z79.899 Other long term (current) drug therapy; Z88.8 Allergy status to other drugs, medicaments and biological substances; Z91.048 Other nonmedicinal substance allergy status
CPT/HCPCS: 90715

== ENCOUNTER → 2018-02-03 | Outpatient (CLI) | payer OTHER ==
[2018-02-03 13:31] LABS: HEMATOCRIT 44.9 % (42.0-52.0); HEMOGLOBIN 15.4 g/dl (13.5-17.5); MEAN CORPUSCULAR HEMOGLOBIN 32.4 pg (27.0-33.0); MEAN CORPUSCULAR HGB CONC 34.3 g/dl (32.0-36.5); MEAN CORPUSCULAR VOLUME 94.3 fl (80.0-96.0); PLATELET COUNT, AUTOMATED 269 10^3/uL (150-450); RED BLOOD COUNT 4.76 10^6/uL (4.30-6.10); RED CELL DISTRIBUTION WIDTH 12.4 % (11.5-14.5)
[2018-02-03 13:34] LABS: APPEARANCE, URINE CLEAR (CLEAR); BACTERIA, URINE AUTO NEGATIVE (NEGATIVE); BILIRUBIN, URINE AUTO NEGATIVE (NEGATIVE); BLOOD, URINE BLOOD NEGATIVE (NEGATIVE); COLOR, URINE STRAW (YELLOW); GLUCOSE, URINE (UA) AUTO NEGATIVE (NEGATIVE); KETONE, URINE AUTO NEGATIVE (NEGATIVE); LEUKOCYTE ESTERASE, URINE AUTO NEGATIVE (NEGATIVE); NITRITE, URINE AUTO NEGATIVE (NEGATIVE); PROTEIN, URINE AUTO NEGATIVE (NEGATIVE); RBC, URINE AUTO 3 /HPF (0-3); SPECIFIC GRAVITY URINE AUTO 1.008 (1.002-1.035); SQUAMOUS EPITHELIAL CELL UR AU 0 /HPF (0-6); UROBILINOGEN, URINE AUTO 0.2 mg/dL (0.0-2.0); WBC, URINE AUTO 2 /HPF (0-3)
[2018-02-03 14:08] LABS: ALBUMIN 4.5 GM/DL (3.2-5.2); ALBUMIN/GLOBULIN RATIO 1.55 (1.00-1.93); ALKALINE PHOSPHATASE 57 U/L (45-117); ALT/SGPT 31 U/L (12-78); AMYLASE 118 U/L (25-115); ANION GAP 9 MEQ/L (8-16); AST/SGOT 19 U/L (7-37); BILIRUBIN,TOTAL 0.4 MG/DL (0.2-1.0); BLOOD UREA NITROGEN 12 MG/DL (7-18); CALCIUM LEVEL 9.2 MG/DL (8.5-10.1); CARBON DIOXIDE LEVEL 24 MEQ/L (21-32); CHLORIDE LEVEL 106 MEQ/L (98-107); CHOLESTEROL LEVEL 238 MG/DL (<200); CHOLESTEROL RISK RATIO 5.534 (<5); GLOMERULAR FILTRATION RATE > 60.0 (>60); GLUCOSE, FASTING 100 MG/DL (70-100); HDL CHOLESTEROL 43 MG/DL (>40); LDL CHOLESTEROL 172 MG/DL (<100); NON-HDL-C 195 MG/DL; POTASSIUM SERUM 4.8 MEQ/L (3.5-5.1); RHEUMATOID FACTOR QUANT < 10.0 IU/ML (<15.0); SODIUM LEVEL 139 MEQ/L (136-145); THYROID STIMULATING HORMONE 0.956 uIU/ML (0.358-3.740); TOTAL PROTEIN 7.4 GM/DL (6.4-8.2); TRIGLYCERIDES LEVEL 117 MG/DL (<150)
[2018-02-03 14:10] LABS: TOTAL 25(OH) VITAMIN D 27.8 NG/ML (30.0-100.0)
[2018-02-03 14:18] LABS: ERYTHROCYTE SEDIMENTATION RATE 4 mm/hr (0-15)
[2018-02-03 14:22] LABS: ESTIMATED AVERAGE GLUCOSE 114 MG/DL (60-110); HEMOGLOBIN A1c 5.6 %
== END ==
LOC: M LAB 12:10
DX: D64.9 Anemia, unspecified (principal); R53.83 Other fatigue; M54.30 Sciatica, unspecified side; K25.9 Gastric ulcer, unspecified as acute or chronic, without hemorrhage or perforation
CPT/HCPCS: 71046

== ENCOUNTER → 2018-03-12 | Outpatient (CLI) | payer OTHER ==
[2018-03-12 12:47] LABS: HEMATOCRIT 47.4 % (42.0-52.0); HEMOGLOBIN 16.1 g/dl (13.5-17.5); MEAN CORPUSCULAR HEMOGLOBIN 32.3 pg (27.0-33.0); MEAN CORPUSCULAR VOLUME 95.2 fl (80.0-96.0); PLATELET COUNT, AUTOMATED 272 10^3/uL (150-450); RED BLOOD COUNT 4.98 10^6/uL (4.30-6.10); RED CELL DISTRIBUTION WIDTH 12.5 % (11.5-14.5); WHITE BLOOD COUNT 7.8 10^3/uL (4.0-10.0)
[2018-03-12 13:02] LABS: INR 0.96; PROTHROMBIN TIME 12.9 SECONDS (12.1-14.4)
[2018-03-12 13:03] LABS: PARTIAL THROMBOPLASTIN TIME 32.2 SECONDS (25.4-37.6)
[2018-03-13 14:10] LABS: HEPATITIS A ANTIBODY IGM NEGATIVE (NEGATIVE); HEPATITIS B CORE ANTIBODY IGM NEGATIVE (NEGATIVE); HEPATITIS B SURFACE ANTIGEN NEGATIVE (NEGATIVE)
[2018-03-13 14:10] LABS: HEPATITIS C VIRUS ABY INDEX 0.1 INDEX (<0.8)
== END ==
LOC: M LAB 11:30
DX: R53.83 Other fatigue (principal); D64.9 Anemia, unspecified; D69.6 Thrombocytopenia, unspecified
CPT/HCPCS: 87340

== ENCOUNTER → 2018-06-22 | Outpatient (CLI) | payer OTHER ==
[~2018-06-22] MED LIST changes: +CLOT1CRE71 TOP; +KEFL500C17 PO; +PERC5TAB12 PO; +PROT1TAB2 PO; +TOPI50TA9 PO; +VENTAER INH
[2018-06-22 11:34] LABS: HEMATOCRIT 42.6 % (42.0-52.0); HEMOGLOBIN 14.8 g/dl (13.5-17.5); MEAN CORPUSCULAR HEMOGLOBIN 32.2 pg (27.0-33.0); MEAN CORPUSCULAR HGB CONC 34.7 g/dl (32.0-36.5); MEAN CORPUSCULAR VOLUME 92.8 fl (80.0-96.0); PLATELET COUNT, AUTOMATED 295 10^3/uL (150-450); RED BLOOD COUNT 4.59 10^6/uL (4.30-6.10); WHITE BLOOD COUNT 8.9 10^3/uL (4.0-10.0)
[2018-06-22 11:44] LABS: PROTHROMBIN TIME 13.3 SECONDS (12.1-14.4)
[2018-06-22 12:37] LABS: ALBUMIN 4.1 GM/DL (3.2-5.2); ALT/SGPT 41 U/L (12-78); BILIRUBIN,TOTAL 0.3 MG/DL (0.2-1.0); BLOOD UREA NITROGEN 22 MG/DL (7-18); CALCIUM LEVEL 8.4 MG/DL (8.5-10.1); CARBON DIOXIDE LEVEL 18 MEQ/L (21-32); CHLORIDE LEVEL 112 MEQ/L (98-107); CHOLESTEROL LEVEL 190 MG/DL (<200); CHOLESTEROL RISK RATIO 5.135 (<5); GLOMERULAR FILTRATION RATE > 60.0 (>60); GLUCOSE, FASTING 112 MG/DL (70-100); HDL CHOLESTEROL 37 MG/DL (>40); LDL CHOLESTEROL 111 MG/DL (<100); NON-HDL-C 153 MG/DL; POTASSIUM SERUM 4.2 MEQ/L (3.5-5.1); PROSTATIC SPECIFIC AG MONITOR 0.67 NG/ML (< 4.00); SODIUM LEVEL 138 MEQ/L (136-145); TOTAL PROTEIN 7.1 GM/DL (6.4-8.2); TRIGLYCERIDES LEVEL 212 MG/DL (<150)
--- NOTE | 2018-06-22 12:49 | REP ---
Chest x-ray: Two views. History: COPD. Fatigue. Comparison study: February 13, 2018. Findings: The patient is status post ventral discectomy fusion plating in the cervical spine. The lungs are symmetrically aerated and clear. The pleural angles are sharp. Heart size is normal. Pulmonary vasculature is not increased. Impression: No active disease. Electronically Signed by Raghu Phillips MD 06/22/2018 12:40 P
--- NOTE | 2018-06-22 21:05 | ECGEPIP ---
Stationary ECG Study [facility] Test Date: 2018-06-22 Pat Name: EJ CORDERO Department: Room: - Gender: M Service Delivery Analyst: MARGARET : 1975 Requested By: Aden Mace Order Number: [id number] Reading MD: Jasmin Christie Measurements Intervals [place] Rate: 82 P: 59 WV: 162 QRS: 58 QRSD: 90 T: 44 QT: 349 QTc: 409 Interpretive Statements SINUS RHYTHM SIMILAR TO 01/12/16 Electronically Signed On 06-22-2018 21:04:52 EDT by Jasmin Christie
== END ==
LOC: M LAB 10:46
PROVIDERS: ATTEND Family Medicine
DX: J44.9 Chronic obstructive pulmonary disease, unspecified (principal); E03.9 Hypothyroidism, unspecified

== ENCOUNTER 2018-07-22 09:18 | Emergency (ER) | payer OTHER ==
[~2018-07-22] VITALS: Ht 180.3 cm; Wt 95.0 kg
[~2018-07-22 09:18] MED LIST changes: -/ESOM40CA PO; -/PANT40TA PO; +HYDR-3715 PO; +NEXI1CAP3 PO; -NORCOTAB PO
[2018-07-22] MEDS ORDERED: CYCL10TA (09:30)
[2018-07-22 10:39] LABS: BASO % 0.4 % (0.0-1.0); EOS # 0.1 10^3/uL (0.0-0.50); EOS % 1.2 % (0.0-3.0); HEMATOCRIT 43.5 % (42.0-52.0); HEMOGLOBIN 14.9 g/dl (13.5-17.5); MEAN CORPUSCULAR HGB CONC 34.3 g/dl (32.0-36.5); MEAN CORPUSCULAR VOLUME 93.5 fl (80.0-96.0); MONO # 0.5 10^3/uL (0.0-0.8); MONO % 6.6 % (0.0-5.0); NEUTROPHILS # 3.2 10^3/uL (1.8-7.7); NEUTROPHILS % 47.1 % (36.0-66.0); PLATELET COUNT, AUTOMATED 244 10^3/uL (150-450); RED BLOOD COUNT 4.65 10^6/uL (4.30-6.10); WHITE BLOOD COUNT 6.9 10^3/uL (4.0-10.0)
--- NOTE | 2018-07-22 10:52 | REP ---
CT cervical spine without contrast HISTORY: Neck pain COMPARISON: 07/19/2015 The patient is status post C5-C7 anterior spinal fusion. A fixation plate and bone graft material are present. There is no acute fracture or subluxation. Disc bulges are present at the C3-4 and C4-5 levels. Posterior osteophytes are present at the C6-7 level. There is minimal narrowing of the spinal canal. Bilateral uncinate process hypertrophy is present at the C5-6 and C6-7 levels. This produces minimal to mild narrowing of the neural foramina. The intervertebral discs are normal in height. IMPRESSION: 1. The patient is status post C5-C7 anterior spinal fusion. There is anatomic alignment. 2. There is cervical spondylosis at the C3-4 through C6-7 levels. The foraminal narrowing on the left at the C5-6 level is a new finding. Electronically Signed by Germain Schmidt MD 07/22/2018 10:44 A
[2018-07-22 11:01] LABS: ERYTHROCYTE SEDIMENTATION RATE 3 mm/hr (0-15)
[2018-07-22 11:07] LABS: BLOOD UREA NITROGEN 26 MG/DL (7-18); C REACTIVE PROTEIN QUANTITATIV < 0.30 MG/DL (0.00-0.30); CALCIUM LEVEL 8.5 MG/DL (8.5-10.1); CARBON DIOXIDE LEVEL 19 MEQ/L (21-32); CHLORIDE LEVEL 111 MEQ/L (98-107); GLOMERULAR FILTRATION RATE > 60.0 (>60); GLUCOSE, FASTING 101 MG/DL (70-100); POTASSIUM SERUM 4.2 MEQ/L (3.5-5.1); SODIUM LEVEL 138 MEQ/L (136-145)
--- NOTE | 2018-07-22 11:09 | REP ---
CT thoracic spine without contrast. HISTORY: Back pain COMPARISON : None There is no acute fracture or subluxation. There is no disc bulge or herniation. The spinal canal and neural foramina are patent. The intervertebral discs and vertebral bodies are normal in height. IMPRESSION: There is no acute fracture or subluxation. Electronically Signed by Germain Schmidt MD 07/22/2018 11:01 A
--- NOTE | 2018-07-22 11:14 | REP ---
CT lumbar spine without contrast History: Back pain There is no disc bulge or herniation at the L1-2 through L3-4 levels. The nerves exit the neural foramina without compression. A diffuse disc bulge is present at the L4-5 level. There is minimal compression of the thecal sac. There is hypertrophy of the posterior articulating facets. There is compression of the L4 nerves in the neural foramina. A diffuse disc bulge is present at the L5-L1 level. There is minimal compression of the thecal sac. There is hypertrophy of the posterior articulating facets. The L5 nerves exit the neural foramina without compression. The L4-5 intervertebral disc is decreased in height consistent with disc degeneration. There is no subluxation. Impression Diffuse disc bulges at the L4-5 and L5-L1 levels with minimal thecal sac compression. There is compression of the L4 nerves in the neural foramina. Electronically Signed by Germain Schmidt MD 07/22/2018 11:06 A
[2018-07-22] MEDS ORDERED: IBUP80TA PO (12:33)
[2018-07-22 12:48] VITALS: BP 122/78
--- NOTE | 2018-07-23 13:26 | ED PDOC ---
Post-Departure Follow-Up dr dwyer faxed formal report of ct c spine for fu Pete Dolan MD Jul 23, 2018 13:26
[2018-07-24 00:08] LABS: ANTINUCLEAR ANTIBODIES DIRECT Negative (Negative); Lyme Disease IgG/IgM Antibodie <0.91 ISR (0.00-0.90); Lyme Disease IgM Ab Quantitati <0.80 index (0.00-0.79)
== END 2018-07-22 12:49 | disposition home or self-care (01) ==
LOC: M ED 09:58
DX: M51.26 Other intervertebral disc displacement, lumbar region (principal); M51.27 Other intervertebral disc displacement, lumbosacral region; M51.36 Other intervertebral disc degeneration, lumbar region; M47.812 Spondylosis without myelopathy or radiculopathy, cervical region; G89.29 Other chronic pain; Z98.890 Other specified postprocedural states; J45.909 Unspecified asthma, uncomplicated; I10 Essential (primary) hypertension; F10.11 Alcohol abuse, in remission; Z87.442 Personal history of urinary calculi; Z87.19 Personal history of other diseases of the digestive system; Z87.891 Personal history of nicotine dependence

== ENCOUNTER → 2019-05-10 | Outpatient (CLI) | payer OTHER ==
[~2019-05-10] MED LIST changes: +CYCL10TA; +IBUP80TA PO
--- NOTE | 2019-05-10 12:00 | REP ---
Clinical: Sciatica . Technique: AP, lateral, bilateral oblique, and coned-down views. Findings: Alignment and lordosis is maintained. The vertebral bodies including transverse process and spinous processes are intact and normal. There is no evidence for acute fracture / compression injury or subluxation. No evidence for spondylolysis or spondylolisthesis. No significant degenerative change is noted. Impression: Normal lumbosacral spine radiograph series. Electronically Signed by Efrain Villegas MD 05/10/2019 11:51 A
== END ==
LOC: M RAD 10:38
PROVIDERS: ATTEND Family Medicine
DX: M54.40 Lumbago with sciatica, unspecified side (principal)

== ENCOUNTER → 2020-05-25 | Outpatient (CLI) | payer OTHER ==
[~2020-05-25] MED LIST changes: +CYCL-707; +CYCL-707 PO; -CYCL10TA; -CYCL10TA PO; +LISI10TA22 PO; -LISI10TA4 PO
[2020-05-25 10:59] LABS: HEMATOCRIT 46.4 % (42.0-52.0); HEMOGLOBIN 15.7 g/dl (13.5-17.5); MEAN CORPUSCULAR HEMOGLOBIN 32.8 pg (27.0-33.0); MEAN CORPUSCULAR HGB CONC 33.8 g/dl (32.0-36.5); MEAN CORPUSCULAR VOLUME 97.1 fl (80.0-96.0); PLATELET COUNT, AUTOMATED 220 10^3/uL (150-450); RED BLOOD COUNT 4.78 10^6/uL (4.30-6.10); WHITE BLOOD COUNT 7.9 10^3/uL (4.0-10.0)
[2020-05-25 11:21] LABS: HEMOGLOBIN A1c 5.5 %
[2020-05-25 11:42] LABS: ALBUMIN 4.2 GM/DL (3.2-5.2); ALT/SGPT 102 U/L (12-78); BILIRUBIN,TOTAL 0.2 MG/DL (0.2-1.0); BLOOD UREA NITROGEN 19 MG/DL (7-18); CARBON DIOXIDE LEVEL 23 MEQ/L (21-32); CHLORIDE LEVEL 108 MEQ/L (98-107); CHOLESTEROL LEVEL 252 MG/DL (<200); CHOLESTEROL RISK RATIO 6.146 (<5); CREATININE FOR GFR 0.92 MG/DL (0.70-1.30); GLOMERULAR FILTRATION RATE > 60.0 (>60); GLUCOSE, FASTING 108 MG/DL (70-100); HDL CHOLESTEROL 41 MG/DL (>40); LDL CHOLESTEROL 175 MG/DL (<100); NON-HDL-C 211 MG/DL; POTASSIUM SERUM 4.6 MEQ/L (3.5-5.1); PROSTATIC SPECIFIC AG MONITOR 0.87 NG/ML (< 4.00); SODIUM LEVEL 137 MEQ/L (136-145); TESTOSTERONE 552 NG/DL (241-827); TOTAL PROTEIN 6.9 GM/DL (6.4-8.2); TRIGLYCERIDES LEVEL 181 MG/DL (<150)
--- NOTE | 2020-05-25 12:25 | REP ---
INDICATION: SCIATICA PT HAVING LABS FIRST. COMPARISON: Comparison chest x-ray June 22, 2018. TECHNIQUE: Two views.. FINDINGS: The lungs are well inflated and free of infiltrate. The pleural angles are sharp. The heart size is normal. Pulmonary vasculature is not increased. No significant bony abnormality is seen. Patient is status post lower cervical spine fusion plating. IMPRESSION: Negative chest x-ray. <Electronically signed by Miguel Phillips > 05/25/20 [id number]
--- NOTE | 2020-05-25 12:45 | REP ---
INDICATION: SCIATICA PT HAVING LABS FIRST. COMPARISON: 05/10/2019, CT 07/22/2018 TECHNIQUE: Five views FINDINGS: The lateral view shows slight loss of lordosis but no significant disc space narrowing. There is no compression deformity focal bone lesion. A few tiny marginal osteophytes are seen at the L3-4 and L4-5. Some facet arthropathy at L5-S1 less at L4-5 is again noted without spondylolysis or spondylolisthesis. Lower thoracic levels and visualized ribs, pedicles, spinous and transverse processes are grossly intact. Sacral ala and foramina, the SI joints and iliac wings grossly intact. IMPRESSION: Some mild loss of the lordosis similar to the previous study with minimal endplate degenerative changes and facet arthropathy lower lumbar spine. No compression fracture, spondylolysis, malalignment or other acute bony finding. <Electronically signed by Bahman Butler > 05/25/20 [id number]
--- NOTE | 2020-05-25 15:22 | REP ---
INDICATION: SCIATICA PT HAVING [facility]S FIRST. COMPARISON: CT cervical spine 07/22/2018 TECHNIQUE: Seven views FINDINGS: The lateral view shows plate and screw fixation from C5 through C7 anterior fusion. No hardware failure. Graft incorporation at C5-6 and C6-7 is complete. Small spur inferiorly at the anterior margin of C4. The disc space bases from C4-5 and upward are maintained. There is no compression deformity. C1-2 relationships are normal. Flexion extension views show adequate range of motion for the upper cervical spine. No prevertebral swelling. No torticollis on the AP view. Foramina marginally adequate on the right at C5-6 and C6-7 but this may be due to the degree of obliquity foramina adequate throughout the left side. The dens and lateral masses of C1 were normal in relationship on the open-mouth view. IMPRESSION: Status post C5 through 7 anterior cervical discectomy and fusion with plate and screw fixation device intact with no hardware failure. Graft incorporation is noted at the C5-6 and C6-7 levels. Alignment normal. Stable exam. <Electronically signed by Bahman Butler > 05/25/20 [id number]
== END ==
LOC: M LAB 09:34
PROVIDERS: ATTEND Family Medicine
DX: M54.30 Sciatica, unspecified side (principal); J44.9 Chronic obstructive pulmonary disease, unspecified

== ENCOUNTER 2020-08-08 13:55 | Emergency (ER) | payer OTHER ==
[~2020-08-08] VITALS: Ht 180.3 cm; Wt 110.5 kg
[2020-08-08 13:56] VITALS: BP 149/93
[2020-08-08] MEDS ORDERED: MELO7.5T35 (14:06)
--- NOTE | 2020-08-08 18:49 | REP ---
INDICATION: productive cough. COMPARISON: None. FINDINGS: The superior mediastinal structures are midline. The cardiac silhouette is unremarkable in size, shape, and position. The diaphragmatic surfaces of the lungs are regular, and the costophrenic angles are clear. The pulmonary michel are clear. The imaged osseous structures are intact. IMPRESSION: There is no acute cardiopulmonary disease. <Electronically signed by Raul Caro > 08/08/20 [id number]
[2020-08-08] MEDS ORDERED: AZIT-12 PO (18:51)
== END 2020-08-08 18:56 | disposition home or self-care (01) ==
LOC: M ED 13:55
DX: J06.9 Acute upper respiratory infection, unspecified (principal); J20.9 Acute bronchitis, unspecified; I10 Essential (primary) hypertension; J45.909 Unspecified asthma, uncomplicated; Z87.01 Personal history of pneumonia (recurrent); G43.909 Migraine, unspecified, not intractable, without status migrainosus; K21.9 Gastro-esophageal reflux disease without esophagitis; Z87.442 Personal history of urinary calculi; F17.200 Nicotine dependence, unspecified, uncomplicated; Z79.899 Other long term (current) drug therapy; Z88.6 Allergy status to analgesic agent; Z88.5 Allergy status to narcotic agent; Z88.8 Allergy status to other drugs, medicaments and biological substances

== ENCOUNTER 2021-04-24 11:46 | Emergency (ER) | payer OTHER ==
[~2021-04-24 11:46] MED LIST changes: +AZIT-12 PO; +MELO7.5T35; -SUMA5SPR; +SUMA5SPR3
[2021-04-24] MEDS ORDERED: AMOX500C PO (12:06)
[2021-04-24 14:28] LABS: BASO % 0.4 % (0.0-1.0); EOS # 0.1 10^3/uL (0.0-0.5); EOS % 0.6 % (0.0-3.0); HEMATOCRIT 42.5 % (42.0-52.0); HEMOGLOBIN 14.9 g/dl (13.5-17.5); LYMPH # 2.6 10^3/uL (1.5-5.0); LYMPH % 23.8 % (24.0-44.0); MEAN CORPUSCULAR HEMOGLOBIN 32.7 pg (27.0-33.0); MEAN CORPUSCULAR HGB CONC 35.1 g/dl (32.0-36.5); MEAN CORPUSCULAR VOLUME 93.2 fl (80.0-96.0); MONO # 0.5 10^3/uL (0.0-0.8); MONO % 4.1 % (2.0-8.0); NEUTROPHILS # 7.6 10^3/uL (1.5-8.5); NEUTROPHILS % 70.3 % (36.0-66.0); PLATELET COUNT, AUTOMATED 272 10^3/uL (150-450); RED BLOOD COUNT 4.56 10^6/uL (4.30-6.10); WHITE BLOOD COUNT 10.9 10^3/uL (4.0-10.0)
[2021-04-24 14:41] LABS: INR 0.98; PROTHROMBIN TIME 13.4 SECONDS (12.7-14.5)
[2021-04-24 14:42] LABS: PARTIAL THROMBOPLASTIN TIME 29.8 SECONDS (25.9-37.0)
[2021-04-24 15:03] LABS: MONO REFLEX EBV COMP NEGATIVE (NEGATIVE)
[2021-04-24 15:18] LABS: ALBUMIN 4.3 GM/DL (3.2-5.2); ALT/SGPT 59 U/L (12-78); BILIRUBIN,DIRECT 0.2 MG/DL (0.0-0.2); BILIRUBIN,TOTAL 0.8 MG/DL (0.2-1.0); BLOOD UREA NITROGEN 10 MG/DL (7-18); CALCIUM LEVEL 9.3 MG/DL (8.5-10.1); CARBON DIOXIDE LEVEL 24 MEQ/L (21-32); CHLORIDE LEVEL 109 MEQ/L (98-107); FREE T4 0.93 NG/DL (0.76-1.46); GLOMERULAR FILTRATION RATE > 60.0 (>60); GLUCOSE, FASTING 110 MG/DL (70-100); LIPASE 96 U/L (73-393); SODIUM LEVEL 140 MEQ/L (136-145); TOTAL PROTEIN 7.3 GM/DL (6.4-8.2)
[2021-04-24] MEDS ORDERED: KETOROLAC 30 MG/ML 1ML VIAL IV ONE (15:35)
[2021-04-24 15:53] VITALS: BP 145/97
[2021-04-26 16:08] LABS: EBV AB TO NUCLEAR ANTIGEN >600.0 U/mL (0.0-17.9); EBV VIRAL CAPSID AG IgG >600.0 U/mL (0.0-17.9); EBV VIRAL CAPSID AG IgM <36.0 U/mL (0.0-35.9)
== END 2021-04-24 16:01 | disposition home or self-care (01) ==
LOC: M ED 11:46
DX: R53.83 Other fatigue (principal); M54.9 Dorsalgia, unspecified; J04.0 Acute laryngitis; Z86.16 Personal history of COVID-19; I10 Essential (primary) hypertension; Z87.442 Personal history of urinary calculi; K21.9 Gastro-esophageal reflux disease without esophagitis; G43.909 Migraine, unspecified, not intractable, without status migrainosus; J45.909 Unspecified asthma, uncomplicated; Z87.01 Personal history of pneumonia (recurrent); Z87.11 Personal history of peptic ulcer disease; Z87.19 Personal history of other diseases of the digestive system; Z87.891 Personal history of nicotine dependence; Z79.899 Other long term (current) drug therapy; Z88.6 Allergy status to analgesic agent; Z88.5 Allergy status to narcotic agent; Z88.8 Allergy status to other drugs, medicaments and biological substances
CPT/HCPCS: 71046; 76536; 80048; 80076; 81001; 83690; 84439; 84443; 85025; 85610; 85730; 86308; 86664; 86665; 93005; 96374; 99284; J1885

== ENCOUNTER → 2021-05-21 | Outpatient (CLI) | payer OTHER ==
[~2021-05-21] MED LIST changes: +AMOX500C PO
[2021-05-21 13:16] LABS: HEMATOCRIT 43.7 % (42.0-52.0); HEMOGLOBIN 15.2 g/dl (13.5-17.5); MEAN CORPUSCULAR HGB CONC 34.8 g/dl (32.0-36.5); MEAN CORPUSCULAR VOLUME 94.8 fl (80.0-96.0); PLATELET COUNT, AUTOMATED 248 10^3/uL (150-450); RED BLOOD COUNT 4.61 10^6/uL (4.30-6.10); WHITE BLOOD COUNT 9.2 10^3/uL (4.0-10.0)
[2021-05-21 13:22] LABS: INR 1.07; PROTHROMBIN TIME 14.3 SECONDS (12.7-14.5)
[2021-05-21 13:28] LABS: HEMOGLOBIN A1c 5.6 %
[2021-05-21 13:43] LABS: ALBUMIN 4.5 GM/DL (3.2-5.2); ALT/SGPT 49 U/L (12-78); BILIRUBIN,TOTAL 0.7 MG/DL (0.2-1.0); BLOOD UREA NITROGEN 13 MG/DL (7-18); CALCIUM LEVEL 9.1 MG/DL (8.5-10.1); CARBON DIOXIDE LEVEL 23 MEQ/L (21-32); CHLORIDE LEVEL 107 MEQ/L (98-107); CHOLESTEROL LEVEL 198 MG/DL (<200); CHOLESTEROL RISK RATIO 4.714 (<5); CREATININE FOR GFR 0.92 MG/DL (0.70-1.30); GLOMERULAR FILTRATION RATE > 60.0 (>60); GLUCOSE, FASTING 112 MG/DL (70-100); HDL CHOLESTEROL 42 MG/DL (>40); LDL CHOLESTEROL 124 MG/DL (<100); NON-HDL-C 156 MG/DL; POTASSIUM SERUM 4.4 MEQ/L (3.5-5.1); PROSTATIC SPECIFIC AG MONITOR 0.78 NG/ML (< 4.00); SODIUM LEVEL 141 MEQ/L (136-145); TESTOSTERONE 290 NG/DL (241-827); THYROXINE (T4) 6.7 UG/DL (4.5-12.0); TOTAL PROTEIN 7.5 GM/DL (6.4-8.2); TOTAL T3 95.1 NG/DL (60.0-181.0); TRIGLYCERIDES LEVEL 158 MG/DL (<150)
== END ==
LOC: M LAB 12:20
PROVIDERS: ATTEND Family Medicine
DX: D64.9 Anemia, unspecified (principal); R53.83 Other fatigue; E03.9 Hypothyroidism, unspecified

== ENCOUNTER 2021-05-27 19:50 | Emergency (ER) | payer OTHER ==
[~2021-05-27] VITALS: Ht 177.8 cm; Wt 101.2 kg
[2021-05-27] MEDS ORDERED: NYST50SS PO (20:03)
[2021-05-27] MEDS ORDERED: FLUC150T9 PO (20:03)
[2021-05-27 21:31] LABS: BASO % 0.4 % (0.0-1.0); EOS # 0.1 10^3/uL (0.0-0.5); EOS % 0.6 % (0.0-3.0); HEMATOCRIT 42.7 % (42.0-52.0); HEMOGLOBIN 14.9 g/dl (13.5-17.5); LYMPH # 2.4 10^3/uL (1.5-5.0); LYMPH % 28.8 % (24.0-44.0); MEAN CORPUSCULAR HEMOGLOBIN 32.3 pg (27.0-33.0); MEAN CORPUSCULAR HGB CONC 34.9 g/dl (32.0-36.5); MEAN CORPUSCULAR VOLUME 92.6 fl (80.0-96.0); MONO # 0.5 10^3/uL (0.0-0.8); MONO % 6.3 % (2.0-8.0); NEUTROPHILS # 5.2 10^3/uL (1.5-8.5); NEUTROPHILS % 63.5 % (36.0-66.0); PLATELET COUNT, AUTOMATED 243 10^3/uL (150-450); RED BLOOD COUNT 4.61 10^6/uL (4.30-6.10); WHITE BLOOD COUNT 8.2 10^3/uL (4.0-10.0)
[2021-05-27 21:49] LABS: ERYTHROCYTE SEDIMENTATION RATE 7 mm/hr (0-15)
[2021-05-27 21:58] LABS: CK-MB VALUE MASS 1.5 NG/ML (<3.6); MB/CK RELATIVE INDEX 1.49 (< OR =4)
[2021-05-27] MEDS ORDERED: IBUPROFEN 600MG TAB PO ONE (22:00)
[2021-05-27] MEDS ORDERED: MORPHINE 4 MG/ML 1ML VIAL/SYRINGE (J2270) IV ONE (22:00)
[2021-05-27] MEDS ORDERED: ISOVUE-370 76% 100ML VIAL As Ordered ONE (22:02)
[2021-05-27] MEDS ORDERED: ONDANSETRON 4MG/2ML VIAL IV ONE (23:00)
[2021-05-27 23:30] VITALS: BP 146/85
[2021-05-28] MEDS ORDERED: NS 1,000 ML IV ONE
[2021-05-28] MEDS ORDERED: oxyCODONE 5MG TAB PO ONE (01:00)
[2021-05-28] MEDS ORDERED: PROT1TAB2 PO (01:54)
[2021-05-28] MEDS ORDERED: HYDR-643 PO (01:54)
== END 2021-05-28 02:10 | disposition home or self-care (01) ==
LOC: M ED 19:50
DX: R13.10 Dysphagia, unspecified (principal); E86.0 Dehydration; K14.8 Other diseases of tongue; K21.9 Gastro-esophageal reflux disease without esophagitis; N20.0 Calculus of kidney; R91.8 Other nonspecific abnormal finding of lung field; I10 Essential (primary) hypertension; Z87.891 Personal history of nicotine dependence; Z79.891 Long term (current) use of opiate analgesic; Z79.899 Other long term (current) drug therapy; Z88.6 Allergy status to analgesic agent; Z88.8 Allergy status to other drugs, medicaments and biological substances; Z88.5 Allergy status to narcotic agent
CPT/HCPCS: 70491; 71260; 74177; 80047; 82550; 82553; 85025; 85652; 87880; 93005; 96361; 96374; 96375; 99285; J2270; J2405; Q9967

== ENCOUNTER → 2021-05-31 | Outpatient (REF) | payer OTHER ==
[~2021-05-31] MED LIST changes: +FLUC150T9 PO; +HYDR-643 PO; +NYST50SS PO
== END ==
LOC: M LAB REF 16:43
PROVIDERS: ATTEND Otolaryngology
DX: B37.0 Candidal stomatitis (principal)

== ENCOUNTER → 2021-05-31 | Outpatient (CLI) | payer OTHER ==
[~2021-05-31] MED LIST changes: +E-Z-GAS II EFFERVESCENT PACKET (SODIUM BICARB./CITRIC ACID/SIMETHICONE) As Ordered ONE; +E-Z-HD 98% w/w 340GM SUSP BTL As Ordered ONE; +E-Z-PAQUE 96% w/w SUSP 176GM BTL As Ordered ONE
== END ==
LOC: M RAD 08:34
PROVIDERS: ATTEND Family Medicine
DX: R10.13 Epigastric pain (principal)

== ENCOUNTER → 2021-06-05 | Outpatient (CLI) | payer OTHER ==
[~2021-06-05] MED LIST changes: -E-Z-GAS II EFFERVESCENT PACKET (SODIUM BICARB./CITRIC ACID/SIMETHICONE) As Ordered ONE; -E-Z-HD 98% w/w 340GM SUSP BTL As Ordered ONE; -E-Z-PAQUE 96% w/w SUSP 176GM BTL As Ordered ONE; +PROHANCE 279.3MG/ML 15ML VIAL As Ordered ONE; +PROHANCE 279.3MG/ML 5ML VIAL As Ordered ONE
== END ==
LOC: M RAD 10:35
PROVIDERS: ATTEND Otolaryngology
DX: K14.8 Other diseases of tongue (principal)
CPT/HCPCS: 70543; A9576

== ENCOUNTER → 2021-10-08 | Outpatient (CLI) | payer OTHER ==
[~2021-10-08] MED LIST changes: -PROHANCE 279.3MG/ML 15ML VIAL As Ordered ONE; -PROHANCE 279.3MG/ML 5ML VIAL As Ordered ONE
== END ==
LOC: M LABSMTC 11:26
PROVIDERS: ATTEND Anesthesiology
DX: Z01.812 Encounter for preprocedural laboratory examination (principal); Z20.822 Contact with and (suspected) exposure to COVID-19

== ENCOUNTER 2021-10-10 09:55 | Day surgery (SDC) | payer OTHER ==
[~2021-10-10] VITALS: Ht 177.8 cm; Wt 102.1 kg
[~2021-10-10 09:55] MED LIST changes: +NS 1,000 ML IV ONE
[2021-10-10] MEDS ORDERED: LIDOCAINE 2% MDV 20ML VIAL As Ordered ONE (11:32)
[2021-10-10] MEDS ORDERED: fentaNYL 100 MCG/2 ML INJECTION As Ordered ONE (11:32)
[2021-10-10 11:55] VITALS: BP 141/94
== END 2021-10-10 11:58 | disposition home or self-care (01) ==
LOC: M OPP 09:55
PROVIDERS: ATTEND Internal Medicine Gastroenterology
DX: Z12.11 Encounter for screening for malignant neoplasm of colon (principal); D12.6 Benign neoplasm of colon, unspecified; K57.30 Diverticulosis of large intestine without perforation or abscess without bleeding; K64.0 First degree hemorrhoids; K22.89 Other specified disease of esophagus; K22.70 Barrett's esophagus without dysplasia; K44.9 Diaphragmatic hernia without obstruction or gangrene; Z79.82 Long term (current) use of aspirin; Z79.891 Long term (current) use of opiate analgesic; Z79.899 Other long term (current) drug therapy; Z88.5 Allergy status to narcotic agent; Z88.6 Allergy status to analgesic agent; Z88.8 Allergy status to other drugs, medicaments and biological substances; Z87.19 Personal history of other diseases of the digestive system; Z87.891 Personal history of nicotine dependence
CPT/HCPCS: 43239; 45380; 88305; J3010

== ENCOUNTER → 2021-11-20 | Outpatient (CLI) | payer OTHER ==
[~2021-11-20] MED LIST changes: -NS 1,000 ML IV ONE
== END ==
LOC: M RAD 10:45
PROVIDERS: ATTEND Family Medicine
DX: N50.9 Disorder of male genital organs, unspecified (principal); N43.3 Hydrocele, unspecified

== ENCOUNTER → 2021-12-17 | Outpatient (CLI) | payer OTHER ==
[2021-12-17 13:17] LABS: HEMATOCRIT 46.7 % (42.0-52.0); HEMOGLOBIN 15.6 g/dl (13.5-17.5); MEAN CORPUSCULAR HEMOGLOBIN 32.8 pg (27.0-33.0); MEAN CORPUSCULAR HGB CONC 33.4 g/dl (32.0-36.5); MEAN CORPUSCULAR VOLUME 98.3 fl (80.0-96.0); PLATELET COUNT, AUTOMATED 197 10^3/uL (150-450); RED BLOOD COUNT 4.75 10^6/uL (4.30-6.10); WHITE BLOOD COUNT 8.6 10^3/uL (4.0-10.0)
[2021-12-17 14:08] LABS: ALBUMIN 4.2 GM/DL (3.2-5.2); ALT/SGPT 69 U/L (12-78); BILIRUBIN,TOTAL 0.5 MG/DL (0.2-1.0); BLOOD UREA NITROGEN 18 MG/DL (7-18); CALCIUM LEVEL 9.3 MG/DL (8.5-10.1); CARBON DIOXIDE LEVEL 24 MEQ/L (21-32); CHLORIDE LEVEL 105 MEQ/L (98-107); CHOLESTEROL LEVEL 235 MG/DL (<200); CHOLESTEROL RISK RATIO 6.351 (<5); CREATININE FOR GFR 0.94 MG/DL (0.70-1.30); GLOMERULAR FILTRATION RATE > 60.0 (>60); GLUCOSE, FASTING 102 MG/DL (70-100); HDL CHOLESTEROL 37 MG/DL (>40); LDL CHOLESTEROL 136 MG/DL (<100); NON-HDL-C 198 MG/DL; POTASSIUM SERUM 4.7 MEQ/L (3.5-5.1); SODIUM LEVEL 134 MEQ/L (136-145); TOTAL PROTEIN 7.5 GM/DL (6.4-8.2); TRIGLYCERIDES LEVEL 311 MG/DL (<150)
[2021-12-17 14:46] LABS: TESTOSTERONE 434 NG/DL (241-827)
[2021-12-17 15:23] LABS: HEMOGLOBIN A1c 5.7 %
== END ==
LOC: M LAB 11:51
PROVIDERS: ATTEND Family Medicine
DX: D64.9 Anemia, unspecified (principal); R53.83 Other fatigue; E03.9 Hypothyroidism, unspecified

== ENCOUNTER 2022-02-11 16:35 | Emergency (ER) | payer OTHER ==
[~2022-02-11] VITALS: Ht 180.3 cm; Wt 102.3 kg
[2022-02-11 17:44] LABS: RSV AMPLIFICATION NEGATIVE (NEGATIVE)
[2022-02-11] MEDS ORDERED: VENTAER INH (18:43)
[2022-02-11] MEDS ORDERED: OSEL75CA PO (18:43)
[2022-02-11 18:59] VITALS: BP 138/102
== END 2022-02-11 19:19 | disposition home or self-care (01) ==
LOC: M ED 16:35
DX: J10.1 Influenza due to other identified influenza virus with other respiratory manifestations (principal); J45.909 Unspecified asthma, uncomplicated; F17.210 Nicotine dependence, cigarettes, uncomplicated; Z88.6 Allergy status to analgesic agent; Z88.8 Allergy status to other drugs, medicaments and biological substances

== ENCOUNTER → 2022-03-01 | Outpatient (CLI) | payer OTHER ==
[~2022-03-01] MED LIST changes: +OSEL75CA PO
== END ==
LOC: M PLAIMG 09:07
PROVIDERS: ATTEND Family Medicine
DX: H53.2 Diplopia (principal); R42 Dizziness and giddiness; R90.82 White matter disease, unspecified

== ENCOUNTER 2022-05-13 10:02 | Emergency (ER) | payer OTHER ==
[~2022-05-13] VITALS: Ht 180.3 cm; Wt 104.5 kg
[~2022-05-13 10:02] MED LIST changes: +NYST-38 PO; -NYST50SS PO
[2022-05-13] MEDS ORDERED: LIDOCAINE 5% (LIDODERM) PATCH TD ONE (14:15)
[2022-05-13] MEDS ORDERED: KETOROLAC 60MG 2ML VIAL IM ONE (14:15)
[2022-05-13] MEDS ORDERED: BENZONATATE 100MG CAPSULE PO ONE (14:15)
[2022-05-13 15:03] LABS: VENOUS BASE EXCESS -5.7 (-2.0-2.0); VENOUS O2 SATURATION 67.6 % (60.0-80.0); VENOUS PARTIAL PRESSURE CO2 40.2 mmHg (38.0-50.0); VENOUS PARTIAL PRESSURE O2 35.9 mmHg (30.0-50.0); VENOUS PH 7.315 UNITS (7.330-7.430); VENOUS STANDARD HCO3 19.1 MEQ/L; VENOUS TOTAL CO2 21.2 MEQ/L (24.0-28.0)
[2022-05-13 15:10] LABS: BASO % 0.4 % (0.0-1.0); EOS # 0.1 10^3/uL (0.0-0.5); HEMATOCRIT 43.8 % (42.0-52.0); HEMOGLOBIN 14.9 g/dl (13.5-17.5); LYMPH # 2.4 10^3/uL (1.5-5.0); LYMPH % 29.6 % (24.0-44.0); MEAN CORPUSCULAR VOLUME 97.1 fl (80.0-96.0); MONO # 0.4 10^3/uL (0.0-0.8); MONO % 5.5 % (2.0-8.0); NEUTROPHILS % 62.9 % (36.0-66.0); PLATELET COUNT, AUTOMATED 209 10^3/uL (150-450); RED BLOOD COUNT 4.51 10^6/uL (4.30-6.10)
[2022-05-13] MEDS ORDERED: PROA1AER2 INH (15:28)
[2022-05-13] MEDS ORDERED: BENZ200C70 PO (15:28)
[2022-05-13] MEDS ORDERED: ASPE4PAD TOP (15:28)
[2022-05-13] MEDS ORDERED: LISI10TA22 PO (15:28)
[2022-05-13 15:37] VITALS: BP 162/110
[2022-05-13 15:42] LABS: CPK CREATINE PHOSPHOKINASE 103 U/L (46-171); MB/CK RELATIVE INDEX 0.97 (< OR =4)
== END 2022-05-13 15:42 | disposition home or self-care (01) ==
LOC: M ED 10:02
DX: R05.9 Cough, unspecified (principal); M54.6 Pain in thoracic spine; R03.0 Elevated blood-pressure reading, without diagnosis of hypertension; Z76.0 Encounter for issue of repeat prescription; Z79.899 Other long term (current) drug therapy; J45.909 Unspecified asthma, uncomplicated; K21.9 Gastro-esophageal reflux disease without esophagitis; Z87.442 Personal history of urinary calculi; Z88.6 Allergy status to analgesic agent; Z88.8 Allergy status to other drugs, medicaments and biological substances; F17.200 Nicotine dependence, unspecified, uncomplicated; Z79.51 Long term (current) use of inhaled steroids
CPT/HCPCS: 36415; 71046; 80047; 82550; 82553; 82803; 85025; 93005; 96372; 99284; J1885

== ENCOUNTER → 2022-06-14 | Outpatient (REF) | payer OTHER ==
[~2022-06-14] MED LIST changes: +ASPE4PAD TOP; +BENZ200C70 PO; +PROA1AER2 INH; +TOPI-254 PO; -TOPI50TA9 PO
[2022-06-14 18:30] LABS: ALBUMIN 4.5 G/DL (3.2-5.2); ALKALINE PHOSPHATASE 56 U/L (46-116); ALT/SGPT 44 U/L (7.0-40); AST/SGOT 24 U/L (<34); BILIRUBIN,TOTAL 0.5 MG/DL (0.3-1.2); BLOOD UREA NITROGEN 16 MG/DL (9-23); CALCIUM LEVEL 9.3 MG/DL (8.5-10.1); CARBON DIOXIDE LEVEL 22 MMOL/L (20-31); CHLORIDE LEVEL 105 MMOL/L (98-107); CHOLESTEROL LEVEL 236 MG/DL (<200); CHOLESTEROL RISK RATIO 5.87 (<5); CREATININE FOR GFR 0.81 MG/DL (0.70-1.30); GLOMERULAR FILTRATION RATE > 60.0 (>60); GLUCOSE, FASTING 114 MG/DL (60-100); HDL CHOLESTEROL 40.2 MG/DL (>40); LDL CHOLESTEROL 121.6 MG/DL (<100); NON-HDL-C 195.8 MG/DL; POTASSIUM SERUM 4.8 MMOL/L (3.5-5.1); SODIUM LEVEL 135 MMOL/L (136-145); THYROID STIMULATING HORMONE 1.242 uIU/ML (0.55-4.78); TOTAL 25(OH) VITAMIN D 47.9 NG/ML (20.0-100.0); TOTAL PROTEIN 7.2 G/DL (5.7-8.2); TRIGLYCERIDES LEVEL 371 MG/DL (<150)
[2022-06-14 19:00] LABS: HEMOGLOBIN A1c 5.6 % (4.0-6.0)
== END ==
LOC: M LAB REF 16:46
PROVIDERS: ATTEND Nurse Practitioner Family
DX: E55.9 Vitamin D deficiency, unspecified (principal); E66.3 Overweight

== ENCOUNTER → 2022-07-18 | Outpatient (REF) | payer OTHER ==
[2022-07-18 14:50] LABS: BACTERIA, URINE AUTO NEGATIVE (NEGATIVE); RBC, URINE AUTO 0 /HPF (0-3); SQUAMOUS EPITHELIAL CELL UR AU 0 /HPF (0-6); WBC, URINE AUTO 0 /HPF (0-3)
== END ==
LOC: M LAB REF 13:01
PROVIDERS: ATTEND Nurse Practitioner Family
DX: R39.9 Unspecified symptoms and signs involving the genitourinary system (principal)

== ENCOUNTER → 2022-11-13 | Outpatient (REF) | payer OTHER ==
[2022-11-13 18:03] LABS: ALBUMIN 4.3 G/DL (3.2-5.2); BILIRUBIN,DIRECT 0.2 MG/DL (<0.4); BILIRUBIN,TOTAL 0.7 MG/DL (0.3-1.2); TOTAL PROTEIN 7.3 G/DL (5.7-8.2)
== END ==
LOC: M LAB REF 16:38
PROVIDERS: ATTEND Nurse Practitioner Family
DX: R74.01 Elevation of levels of liver transaminase levels (principal)

== ENCOUNTER → 2022-12-16 | Outpatient (CLI) | payer OTHER | LOC: M RAD 08:24 | PROVIDERS: ATTEND Nurse Practitioner Family | DX: R74.01 Elevation of levels of liver transaminase levels (principal); N28.1 Cyst of kidney, acquired; N20.0 Calculus of kidney ==

== ENCOUNTER 2023-05-10 15:53 | Emergency (ER) | payer OTHER ==
[~2023-05-10] VITALS: Ht 180.3 cm; Wt 95.5 kg
[~2023-05-10 15:53] MED LIST changes: -MELO7.5T35; +MELO7.5T35 PO; +TOPI-21 PO; -TOPI-254 PO
[2023-05-10] MEDS ORDERED: AMLO25TA PO (16:05)
[2023-05-10] MEDS ORDERED: ASPIRIN 81MG CHEW TABLET PO ONE (16:15)
[2023-05-10 16:36] LABS: BASO % 0.5 % (0.0-1.0); EOS # 0.1 10^3/uL (0.0-0.5); EOS % 0.9 % (0.0-3.0); HEMATOCRIT 42.3 % (42.0-52.0); HEMOGLOBIN 15.5 g/dl (13.5-17.5); LYMPH # 1.9 10^3/uL (1.5-5.0); LYMPH % 21.4 % (24.0-44.0); MEAN CORPUSCULAR VOLUME 95.5 fl (80.0-96.0); MONO # 0.5 10^3/uL (0.0-0.8); MONO % 6.1 % (2.0-8.0); NEUTROPHILS # 6.1 10^3/uL (1.5-8.5); NEUTROPHILS % 70.4 % (36.0-66.0); PLATELET COUNT, AUTOMATED 224 10^3/uL (150-450); RED BLOOD COUNT 4.43 10^6/uL (4.30-6.10); WHITE BLOOD COUNT 8.7 10^3/uL (4.0-10.0)
[2023-05-10 16:43] LABS: INR 2.18; PROTHROMBIN TIME 23.5 SECONDS (12.5-14.5)
[2023-05-10 16:44] LABS: MEAN CORPUSCULAR HGB CONC 36.6 g/dl (32.0-36.5)
[2023-05-10 17:03] LABS: CK-MB VALUE MASS < 1.0 NG/ML (<3.6)
[2023-05-10 17:04] LABS: LIPASE 53 U/L (12-53)
[2023-05-10 17:06] LABS: ALBUMIN 3.7 G/DL (3.2-5.2); ALKALINE PHOSPHATASE 59 U/L (46-116); ALT/SGPT 113 U/L (7.0-40); AST/SGOT 59 U/L (<34); BILIRUBIN,DIRECT 0.1 MG/DL (<0.4); BILIRUBIN,TOTAL 0.4 MG/DL (0.3-1.2); BLOOD UREA NITROGEN 15 MG/DL (9-23); CALCIUM LEVEL 8.7 MG/DL (8.5-10.1); CARBON DIOXIDE LEVEL 22 MMOL/L (20-31); CHLORIDE LEVEL 108 MMOL/L (98-107); CREATININE FOR GFR 0.73 MG/DL (0.70-1.30); GLOMERULAR FILTRATION RATE > 60.0 (>60); GLUCOSE, FASTING 123 MG/DL (60-100); POTASSIUM SERUM 3.7 MMOL/L (3.5-5.1); SODIUM LEVEL 138 MMOL/L (136-145); TOTAL PROTEIN 6.3 G/DL (5.7-8.2)
[2023-05-10 17:08] LABS: FREE T4 1.03 NG/DL (0.89-1.76); THYROID STIMULATING HORMONE 1.099 uIU/ML (0.55-4.78)
[2023-05-10 17:12] LABS: CPK CREATINE PHOSPHOKINASE 98 U/L (46-171); MB/CK RELATIVE INDEX 1.02 (< OR =4)
[2023-05-10] MEDS ORDERED: ISOVUE-370 76% 100ML VIAL As Ordered ONE (17:32)
[2023-05-10] MEDS: ACETAMINOPHEN TAB 650MG DOSE (2X325MG) PO ONE (17:45)
[2023-05-10 18:53] LABS: CK-MB VALUE MASS < 1.0 NG/ML (<3.6)
[2023-05-10 18:55] LABS: CPK CREATINE PHOSPHOKINASE 102 U/L (46-171); MB/CK RELATIVE INDEX 0.98 (< OR =4)
[2023-05-10 19:15] VITALS: TEMP 97.8
[2023-05-10 19:45] VITALS: BP 126/69; O2SAT 95
[2023-05-10 19:49] LABS: CK-MB VALUE MASS < 1.0 NG/ML (<3.6)
[2023-05-10 19:50] LABS: CPK CREATINE PHOSPHOKINASE 98 U/L (46-171); MB/CK RELATIVE INDEX 1.02 (< OR =4)
[2023-05-10] MEDS ORDERED: HOLTER MONITOR XX (20:29)
== END 2023-05-10 20:50 | disposition home or self-care (01) ==
LOC: M ED 15:53
DX: R07.9 Chest pain, unspecified (principal); R91.1 Solitary pulmonary nodule; R00.0 Tachycardia, unspecified; I10 Essential (primary) hypertension; J45.909 Unspecified asthma, uncomplicated; F17.200 Nicotine dependence, unspecified, uncomplicated; Z88.5 Allergy status to narcotic agent; Z88.8 Allergy status to other drugs, medicaments and biological substances; Z79.52 Long term (current) use of systemic steroids; Z79.899 Other long term (current) drug therapy
CPT/HCPCS: 36415; 71045; 71275; 80048; 80076; 82550; 82553; 83690; 83880; 84439; 84443; 85025; 85610; 87486; 87581; 87633; 87798; 93005; 93041; 94760; 99285; Q9967

== ENCOUNTER 2023-05-13 09:44 | Emergency (ER) | payer OTHER ==
[~2023-05-13] VITALS: Ht 180.3 cm; Wt 99.4 kg
[~2023-05-13 09:44] MED LIST changes: +AMLO25TA PO; +HOLTER MONITOR XX
[2023-05-13 10:31] LABS: BASO % 0.3 % (0.0-1.0); EOS # 0.1 10^3/uL (0.0-0.5); EOS % 0.6 % (0.0-3.0); HEMOGLOBIN 15.5 g/dl (13.5-17.5); LYMPH # 1.3 10^3/uL (1.5-5.0); LYMPH % 14.8 % (24.0-44.0); MEAN CORPUSCULAR HEMOGLOBIN 33.6 pg (27.0-33.0); MEAN CORPUSCULAR HGB CONC 34.4 g/dl (32.0-36.5); MEAN CORPUSCULAR VOLUME 97.6 fl (80.0-96.0); MONO # 0.4 10^3/uL (0.0-0.8); MONO % 5.1 % (2.0-8.0); NEUTROPHILS # 6.9 10^3/uL (1.5-8.5); NEUTROPHILS % 78.7 % (36.0-66.0); PLATELET COUNT, AUTOMATED 223 10^3/uL (150-450); RED BLOOD COUNT 4.61 10^6/uL (4.30-6.10); WHITE BLOOD COUNT 8.7 10^3/uL (4.0-10.0)
[2023-05-13 10:42] LABS: INR 0.97; PROTHROMBIN TIME 12.6 SECONDS (12.5-14.5)
[2023-05-13 10:51] LABS: CK-MB VALUE MASS < 1.0 NG/ML (<3.6)
[2023-05-13 10:52] LABS: LIPASE 53 U/L (12-53)
[2023-05-13 10:55] LABS: FREE T4 0.91 NG/DL (0.89-1.76)
[2023-05-13 10:56] LABS: THYROID STIMULATING HORMONE 2.076 uIU/ML (0.55-4.78)
[2023-05-13 11:00] LABS: ALBUMIN 3.8 G/DL (3.2-5.2); ALKALINE PHOSPHATASE 58 U/L (46-116); ALT/SGPT 102 U/L (7.0-40); AST/SGOT 64 U/L (<34); BILIRUBIN,DIRECT 0.2 MG/DL (<0.4); BILIRUBIN,TOTAL 0.7 MG/DL (0.3-1.2); BLOOD UREA NITROGEN 15 MG/DL (9-23); CALCIUM LEVEL 8.6 MG/DL (8.5-10.1); CARBON DIOXIDE LEVEL 23 MMOL/L (20-31); CHLORIDE LEVEL 110 MMOL/L (98-107); CPK CREATINE PHOSPHOKINASE 71 U/L (46-171); CREATININE FOR GFR 0.63 MG/DL (0.70-1.30); GLOMERULAR FILTRATION RATE > 60.0 (>60); GLUCOSE, FASTING 145 MG/DL (60-100); POTASSIUM SERUM 4.2 MMOL/L (3.5-5.1); SODIUM LEVEL 137 MMOL/L (136-145); TOTAL PROTEIN 6.6 G/DL (5.7-8.2)
[2023-05-13 13:57] LABS: RSV AMPLIFICATION NEGATIVE (NEGATIVE)
[2023-05-13 14:03] LABS: CK-MB VALUE MASS < 1.0 NG/ML (<3.6)
[2023-05-13 14:08] LABS: CPK CREATINE PHOSPHOKINASE 62 U/L (46-171); MB/CK RELATIVE INDEX 1.61 (< OR =4)
[2023-05-13] MEDS ORDERED: OXYC1TAB23 PO (14:51)
[2023-05-13] MEDS ORDERED: PANT40TA29 PO (14:51)
[2023-05-13] MEDS ORDERED: VENTAER INH (14:51)
[2023-05-13] MEDS ORDERED: AMLO1TAB25 PO (14:51)
[2023-05-13] MEDS ORDERED: ASPI81TA26 PO (14:51)
[2023-05-13] MEDS ORDERED: IBUP200C25 PO (14:51)
[2023-05-13] MEDS ORDERED: HOME MED LIST COMPLETE! XX SCH (14:55)
[2023-05-13] MEDS ORDERED: NITROGLYCERIN 0.4MG SUBL TABLET SL PRN (15:50)
[2023-05-13] MEDS ORDERED: PERCOCET 5MG/325MG TAB PO PRN (16:00)
[2023-05-13] MEDS ORDERED: ISOVUE-370 76% 100ML VIAL As Ordered ONE (16:08)
[2023-05-13 18:21] VITALS: BP 148/97
[2023-05-13] MEDS: VALSARTAN 80 MG TAB (DIOVAN) PO ONE (18:21)
[2023-05-13 20:00] VITALS: BP 140/83; TEMP 98.3; O2SAT 96
[2023-05-13] MEDS ORDERED: VALS1TAB67 PO (20:09)
[2023-05-13] MEDS ORDERED: NITR0.4S14 SL (20:09)
[2023-05-13] MEDS: NITROGLYCERIN 0.4MG SUBL TABLET SL STA (20:10)
[2023-05-14] MEDS ORDERED: PANTOPRAZOLE 40MG TAB (PROTONIX) PO SCH (09:00)
[2023-05-14] MEDS ORDERED: ENOXAPARIN 40MG/0.4ML SYRINGE (J1650 PER 10MG) SC SCH (09:00)
[2023-05-14] MEDS ORDERED: ASPIRIN 81MG ENTERIC TABLET PO SCH (09:00)
[2023-05-14] MEDS ORDERED: ATORVASTATIN 20 MG TAB PO SCH (09:00)
== END 2023-05-13 20:23 | disposition home or self-care (01) ==
LOC: M ED 09:44 → EDBD 09:44 → M ED 20:23
DX: R07.9 Chest pain, unspecified (principal); I10 Essential (primary) hypertension; K21.9 Gastro-esophageal reflux disease without esophagitis; E78.5 Hyperlipidemia, unspecified; F17.200 Nicotine dependence, unspecified, uncomplicated; F10.10 Alcohol abuse, uncomplicated; Z88.5 Allergy status to narcotic agent; Z88.8 Allergy status to other drugs, medicaments and biological substances; Z79.52 Long term (current) use of systemic steroids; Z79.82 Long term (current) use of aspirin; Z79.899 Other long term (current) drug therapy
CPT/HCPCS: 36415; 70450; 70496; 70498; 70551; 71046; 80048; 80076; 82550; 82553; 83690; 84439; 84443; 85025; 85610; 85730; 86618; 87631; 93005; 93041; 93306; 94760; 99291; Q9967

== ENCOUNTER → 2023-05-14 | Outpatient (CLI) | payer OTHER ==
[~2023-05-14] MED LIST changes: +AMLO1TAB25 PO; +ASPI81TA26 PO; +IBUP200C25 PO; +NITR0.4S14 SL; +OXYC1TAB23 PO; +PANT40TA29 PO; +VALS1TAB67 PO
== END ==
LOC: M EKG 12:03
PROVIDERS: ATTEND Emergency Medicine
DX: R00.2 Palpitations (principal)

== ENCOUNTER → 2023-05-26 | Outpatient (REF) | payer OTHER ==
[2023-05-26 14:21] LABS: PSA SCREENING 0.65 NG/ML (< 4.00)
[2023-05-26 14:25] LABS: BILIRUBIN,DIRECT 0.2 MG/DL (<0.4); BILIRUBIN,TOTAL 0.7 MG/DL (0.3-1.2); TOTAL PROTEIN 6.9 G/DL (5.7-8.2)
== END ==
LOC: M LAB REF 13:21
PROVIDERS: ATTEND Nurse Practitioner Family
DX: R74.01 Elevation of levels of liver transaminase levels (principal); F52.21 Male erectile disorder

== ENCOUNTER → 2023-06-04 | Outpatient (REF) | payer OTHER ==
[2023-06-04 15:12] LABS: BILIRUBIN,DIRECT 0.1 MG/DL (<0.4); BILIRUBIN,TOTAL 0.4 MG/DL (0.3-1.2); TOTAL PROTEIN 6.7 G/DL (5.7-8.2)
== END ==
LOC: M LAB REF 12:33
PROVIDERS: ATTEND Nurse Practitioner Family
DX: E78.5 Hyperlipidemia, unspecified (principal)

== ENCOUNTER → 2023-06-18 | Outpatient (REF) | payer OTHER | LOC: M LAB REF 15:54 | PROVIDERS: ATTEND Physician Assistant | DX: B34.9 Viral infection, unspecified (principal) ==

== ENCOUNTER → 2023-08-28 | Outpatient (CLI) | payer OTHER | LOC: M SOG 07:54 | PROVIDERS: ATTEND Physician Assistant | DX: Z53.9 Procedure and treatment not carried out, unspecified reason (principal) ==

== ENCOUNTER 2023-12-09 10:14 | Emergency (ER) | payer OTHER ==
[~2023-12-09] VITALS: Ht 180.3 cm; Wt 101.4 kg
[2023-12-09 12:44] LABS: BASO # 0.1 10^3/uL (0.0-0.2); BASO % 0.7 % (0.0-1.0); EOS % 0.3 % (0.0-3.0); HEMATOCRIT 47.1 % (42.0-52.0); HEMOGLOBIN 16.2 g/dl (13.5-17.5); LYMPH # 1.6 10^3/uL (1.5-5.0); LYMPH % 21.8 % (24.0-44.0); MEAN CORPUSCULAR HGB CONC 34.4 g/dl (32.0-36.5); MEAN CORPUSCULAR VOLUME 98.7 fl (80.0-96.0); MONO # 0.6 10^3/uL (0.0-0.8); MONO % 7.8 % (2.0-8.0); NEUTROPHILS # 5.2 10^3/uL (1.5-8.5); NEUTROPHILS % 68.6 % (36.0-66.0); PLATELET COUNT, AUTOMATED 210 10^3/uL (150-450); RED BLOOD COUNT 4.77 10^6/uL (4.30-6.10); WHITE BLOOD COUNT 7.5 10^3/uL (4.0-10.0)
[2023-12-09] MEDS: KETOROLAC 30 MG/ML 1ML VIAL IV ONE (12:47)
[2023-12-09] MEDS: CIPRODEX OTIC SUSP 7.5ML AD ONE (12:47)
[2023-12-09] MEDS: AMPICILLIN SOD/SULBACTAM SOD 3 GM in D5W MINI-BAG PLUS 100 ML IV ONE (12:48)
[2023-12-09 12:55] LABS: ERYTHROCYTE SEDIMENTATION RATE 25 mm/hr (0-20)
[2023-12-09 13:12] LABS: BLOOD UREA NITROGEN 14 MG/DL (9-23); CALCIUM LEVEL 10.2 MG/DL (8.5-10.1); CARBON DIOXIDE LEVEL 23 MMOL/L (20-31); CHLORIDE LEVEL 109 MMOL/L (98-107); CREATININE FOR GFR 0.66 MG/DL (0.70-1.30); GLOMERULAR FILTRATION RATE > 60.0 (>56); GLUCOSE, FASTING 112 MG/DL (60-100); POTASSIUM SERUM 4.4 MMOL/L (3.5-5.1); SODIUM LEVEL 139 MMOL/L (136-145)
[2023-12-09] MEDS ORDERED: KETO10TAB PO (13:17)
[2023-12-09] MEDS ORDERED: CIPR7.5D2 AD (13:17)
[2023-12-09] MEDS ORDERED: AMOX875T2 PO (13:17)
[2023-12-09 13:22] VITALS: BP 146/97; TEMP 97; O2SAT 97
== END 2023-12-09 13:30 | disposition home or self-care (01) ==
LOC: M ED 10:14
DX: H70.001 Acute mastoiditis without complications, right ear (principal); H60.91 Unspecified otitis externa, right ear; R73.03 Prediabetes; J45.909 Unspecified asthma, uncomplicated; J44.9 Chronic obstructive pulmonary disease, unspecified; I10 Essential (primary) hypertension; K21.9 Gastro-esophageal reflux disease without esophagitis; F17.200 Nicotine dependence, unspecified, uncomplicated; Z79.82 Long term (current) use of aspirin; Z79.899 Other long term (current) drug therapy; Z88.5 Allergy status to narcotic agent; Z88.8 Allergy status to other drugs, medicaments and biological substances
CPT/HCPCS: 70480; 80048; 85025; 85652; 86140; 96365; 96375; 99283; J0295; J1885

== ENCOUNTER → 2023-12-12 | Outpatient (CLI) | payer OTHER ==
[~2023-12-12] MED LIST changes: +AMOX875T2 PO; +CIPR7.5D2 AD; +KETO10TAB PO
== END ==
LOC: M SOG 08:51
PROVIDERS: ATTEND Physician Assistant
DX: M25.522 Pain in left elbow (principal)

== ENCOUNTER → 2024-01-08 | Outpatient (CLI) | payer OTHER | LOC: M SOG 07:29 | PROVIDERS: ATTEND Physician Assistant | DX: M25.531 Pain in right wrist (principal); M25.532 Pain in left wrist ==

== ENCOUNTER → 2024-04-22 | Outpatient (REF) | payer OTHER ==
[2024-04-22 15:23] LABS: ALKALINE PHOSPHATASE 62 U/L (40-129); ALT/SGPT 57 U/L (7.0-40); AST/SGOT 27 U/L (<34); BILIRUBIN,DIRECT 0.1 MG/DL (<0.4); BILIRUBIN,TOTAL 0.5 MG/DL (0.3-1.2); BLOOD UREA NITROGEN 14 MG/DL (9-23); CALCIUM LEVEL 9.3 MG/DL (8.5-10.1); CARBON DIOXIDE LEVEL 24 MMOL/L (20-31); CHLORIDE LEVEL 107 MMOL/L (98-107); CHOLESTEROL LEVEL 231 MG/DL (<200); CHOLESTEROL RISK RATIO 5.84 (<5); GLOMERULAR FILTRATION RATE > 60.0 (>56); GLUCOSE, FASTING 110 MG/DL (60-100); HDL CHOLESTEROL 39.5 MG/DL (>40); LDL CHOLESTEROL 140.7 MG/DL (<100); NON-HDL-C 191.5 MG/DL; POTASSIUM SERUM 4.6 MMOL/L (3.5-5.1); SODIUM LEVEL 139 MMOL/L (136-145); TOTAL PROTEIN 7.2 G/DL (5.7-8.2); TRIGLYCERIDES LEVEL 254 MG/DL (<150)
[2024-04-22 15:26] LABS: THYROID STIMULATING HORMONE 1.157 uIU/ML (0.55-4.78)
[2024-04-22 17:01] LABS: HEMOGLOBIN A1c 5.5 % (4.0-6.0)
== END ==
LOC: M LAB REF 13:18
PROVIDERS: ATTEND Nurse Practitioner Family
DX: I10 Essential (primary) hypertension (principal); E66.9 Obesity, unspecified; R74.01 Elevation of levels of liver transaminase levels

== ENCOUNTER → 2024-06-11 | Outpatient (CLI) | payer OTHER | LOC: M SOG 11:58 | PROVIDERS: ATTEND Physician Assistant | DX: M54.2 Cervicalgia (principal); Z98.1 Arthrodesis status ==

== ENCOUNTER → 2024-10-11 | Outpatient (CLI) | payer OTHER | LOC: M WHC 09:05 | PROVIDERS: ATTEND Nurse Practitioner Family | DX: K76.89 Other specified diseases of liver (principal); K76.0 Fatty (change of) liver, not elsewhere classified; N20.0 Calculus of kidney; N28.1 Cyst of kidney, acquired; R91.8 Other nonspecific abnormal finding of lung field ==

== ENCOUNTER → 2025-01-21 | Outpatient (CLI) | payer OTHER | LOC: M PLARAD 09:10 | PROVIDERS: ATTEND Physical Medicine & Rehabilitation | DX: M25.78 Osteophyte, vertebrae (principal); M48.061 Spinal stenosis, lumbar region without neurogenic claudication; M47.816 Spondylosis without myelopathy or radiculopathy, lumbar region; M51.26 Other intervertebral disc displacement, lumbar region ==